=== PATIENT | female | born 1950 | race Caucasian/White ===

== ENCOUNTER 2017-04-01 21:41 | Observation (INO) | payer MEDICARE, SELFPAY | END 2017-04-02 10:00 | disposition home or self-care (01) | PROVIDERS: Admitting Provider Emergency Medicine; Emergency Provider Emergency Medicine; Family Provider Internal Medicine Adolescent Medicine; Visit Provider Internal Medicine Adolescent Medicine | DX: K52.9 Noninfective gastroenteritis and colitis, unspecified (principal); I10 Essential (primary) hypertension | CPT/HCPCS: 36415; 74176; 80053; 81001; 82150; 83690; 85025; 87086; 87275; 87276; 96365; 96375; 96376; 99285; G0378; J2405 ==

== ENCOUNTER → 2017-09-11 11:10 | Outpatient (CLI) | payer MEDICARE, SELFPAY ==
--- NOTE | 2017-09-11 11:19 | XR_ITS ---
XR chest 2V HISTORY: Left-sided chest pain/contusion ITS.REASON: CONTUSION OF LT RIBS ORDERING PHYSICIAN: Emmett Govea MD PATIENT AGE: 67 years COMPARISON: 08/07/2016 FINDINGS: The cardiomediastinal silhouette and pulmonary vascularity are within normal limits. There is a calcified granuloma in the left midlung. A faint area of increased density is present in the left midlung laterally similar to the previous exam. This is not significant change. There is a transverse density in the right midlung also not significantly changed. No lobar consolidation or collapse. No acute bony anomalies. IMPRESSION: 1. No acute finding. 2. Nonspecific parenchymal opacity left midlung and right .
--- NOTE | 2017-09-11 11:19 | XR_ITS ---
XR ribs LT 2V HISTORY: Left-sided rib pain following injury ITS.REASON: CONTUSION OF LT RIBS ORDERING PHYSICIAN: Emmett Govea MD PATIENT AGE: 67 years Comparison: None FINDINGS: Multiple views of the Left ribs were obtained. No fracture or dislocation. No lytic or blastic change. IMPRESSION: Negative RIBS. If pain persists, consider follow-up exam in 7-[address] with 3-D reformats.
== END ==
PROVIDERS: PCP Internal Medicine Adolescent Medicine; Visit Provider Internal Medicine Adolescent Medicine
DX: S20.212A Contusion of left front wall of thorax, initial encounter (principal)
CPT/HCPCS: 71046; 71100

== ENCOUNTER → 2018-05-04 11:19 | Outpatient (CLI) | payer MEDICARE, SELFPAY ==
[2018-05-04 15:04] LABS: Alanine Aminotransferase 32 U/L (12-78); Albumin Level 3.6 gm/dL (3.4-5.0); Albumin/Globulin Ratio 1.3 (1.1-1.8); Alkaline Phosphatase 131 U/L (46-116); Anion Gap 12.8 mEq/L (5-15); Aspartate Amino Transferase 14 U/L (15-37); Bilirubin,Total 0.3 mg/dL (0.2-1.0); Blood Urea Nitrogen 13 mg/dL (7-18); Carbon Dioxide 27 mmol/L (21.0-32.0); Chloride 105 mmol/L (98-107); Chol/HDL Ratio 4.5 (1-3.5); Cholesterol 178 mg/dL (140-200); Estimated Glomerular Filt Rate 55 ml/min (>60); GFR (African American) 67 ML/MIN (>60); Globulin 2.8 gm/dl (1.3-3.2); Glucose 118 mg/dL (74-106); HDL Cholesterol 40 mg/dL (29-89); LDL Cholesterol 118 mg/dL (0-130); Potassium 4.8 mmoL/L (3.5-5.1); Sodium 140 mmol/L (136-145); Total Protein,Serum 6.4 gm/dL (6.4-8.2); Triglycerides 99 mg/dL (30-200); VLDL Cholesterol 20 mg/dL (0-40)
[2018-05-04 15:31] LABS: Hemoglobin A1C 5.8 % (0.0-7.0)
== END ==
PROVIDERS: PCP Internal Medicine Adolescent Medicine; Visit Provider Internal Medicine Adolescent Medicine
DX: R73.9 Hyperglycemia, unspecified (principal); I10 Essential (primary) hypertension; E78.00 Pure hypercholesterolemia, unspecified
CPT/HCPCS: 36415; 80053; 80061; 83036

== ENCOUNTER 2018-08-21 18:01 | Emergency (ER) | payer MEDICARE, SELFPAY ==
[2018-08-21 18:25] VITALS: BP 154/85; PULSE 80; RESP 18; TEMP 36.8; O2SAT 96; BMI 39.1
--- NOTE | 2018-08-21 18:57 | HMH.EDUTC ---
[facility] [place] Disposition Clinical Impression: Sciatica Qualifiers: Laterality: left Qualified Code(s): M54.32 - Sciatica, left side Leg pain Qualifiers: Laterality: left Qualified Code(s): M79.605 - Pain in left leg Disposition: Home, Self-Care Condition on Discharge: Good Instructions: Sciatica, DI for Sciatica, Ketorolac Injection Additional Instructions: Rest, no heavy lifting, Keep taking the oral steroids that you are on. Follow up with your regular doctor or return if you're not getting better in 24 to 48 hours. GO TO THE ER FOR ANY WORSENING SYMPTOMS, SUCH NUMBNESS OF YOUR SADDLE AREA OR BOWEL OR BLADDER PROBLEMS. Referrals: Emmett Govea MD [Primary Care Provider] - Time of Disposition: 19:02 Medical Decision Making - Medical Records Medical records reviewed: Yes: I reviewed the patient's medical records. - Dougie Inquiry Pt receiving controlled substance: No Dougie was queried for this patient: No Vital Signs: 08/21/18 18:25 08/21/18 19:03 Temperature 98.3 F 98.3 F Temperature Source Oral Oral Pulse Rate 80 Pulse Rate [Right Brachial] 80 Respiratory Rate 18 18 Blood Pressure 154/85 H Blood Pressure [Right Arm] 154/85 H Blood Pressure Mean [Right Arm] 108 Blood Pressure Source Automatic Cuff Blood Pressure Source [Right Arm] Automatic Cuff Blood Pressure Position Sitting Blood Pressure Position [Right Arm] Sitting 02 Sat by Pulse Oximetry 96 Oxygen Delivery Method Room Air Room Air Orders (Tests/Meds): ED MEDICATIONS Discontinued Medications Generic Name Dose Route Start Last Admin Trade Name Kalin PRN Reason Stop Dose Admin Ketorolac Tromethamine 60 mg 08/21/18 18:40 08/21/18 18:44 Toradol 60mg/2ml Vial IM 08/21/18 18:41 60 mg ONCE ONE Administration [facility] [place] HPI - General Stated complaint: Hard to Walk Time Seen by Provider: 08/21/18 18:35 Mode of Arrival: Family Vehicle Source of Information: Patient Limitations: No Limitations Description of Symptoms (Recalled from Triage Doc. by RN): C/O LEFT LEG PAIN. PATIENT FEELS IT IS SCIATICA AFTER TRAVELING TO [place] AND BACK. HAS EXTREME DIFFICULTY WITH AMBULATION. SON WHOM IS A DR WROTE SCRIPT FOR PREDNISONE. HEENT Symptoms (Recalled from RN notes): No Resp Symptoms (Recalled from RN notes): No Skin Symptoms (Recalled from RN notes): No MS Symptoms (Recalled from RN notes): Yes Functional Status (Recalled from RN notes): N/A - Related Data Home Medications Medication Instructions Recorded Confirmed Citalopram Hydrobromide 20 mg PO DAILY 08/21/18 08/21/18 [Citalopram HBr] Furosemide [Furosemide 20mg Tab] 20 mg PO BID 08/21/18 08/21/18 Lisinopril [Lisinopril 40mg Tablet] 40 mg PO DAILY 08/21/18 08/21/18 Allergies Allergy/AdvReac Type Severity Reaction Status Date / Time bupivacaine [From MARCAINE] Allergy Intermediate (topical) Verified 08/21/18 18:30 rash ANESTHETICS,GENERAL AdvReac Unknown NAUSEA/VOMI Uncoded 04/08/17 15:26 TTING - Worker's Comp Is this a Worker's Comp case?: No H History - Hepatitis A Screen Drug use history?: No High risk sexual behaviors?: No History of sexually transmitted infection?: No Currently employed?: No Childcare worker?: No Do you have indoor plumbing?: Yes Do you have electricity?: Yes Attestation statement:: This patient has been screened for Hepatitis A risk factors. I have reviewed the patient's past medical history: Yes - Social History Alcohol Intake: never Occupational Status: retired - Psychiatric History Expresses thoughts of harming self/others: None Suicide Plan Description: No Plan ROS Obtained: Yes All systems reviewed & no additional complaints - Constitutional Constitutional: Denies chills, Denies fever(s) - Eyes Eyes: Denies change in vision, Denies eye discharge - Cardiovascular Cardiovascular: Denies chest pain - Respiratory Respiratory: No chest congestion, No cough - Gastrointest
--- NOTE | 2018-08-21 19:00 | ED_ITS ---
[facility] [place] Clinical Impression: Sciatica Qualifiers: Laterality: left Qualified Code(s): M54.32 - Sciatica, left side Leg pain Qualifiers: Laterality: left Qualified Code(s): M79.605 - Pain in left leg Disposition: Home, Self-Care Condition on Discharge: Good Instructions: Sciatica, DI for Sciatica, Ketorolac Injection Additional Instructions: Rest, no heavy lifting, Keep taking the oral steroids that you are on. Follow up with your regular doctor or return if you're not getting better in 24 to 48 hours. GO TO THE ER FOR ANY WORSENING SYMPTOMS, SUCH NUMBNESS OF YOUR SADDLE AREA OR BOWEL OR BLADDER PROBLEMS. Referrals: Emmett Govea MD [Primary Care Provider] - Time of Disposition: 19:02 Medical Decision Making - Medical Records Medical records reviewed: Yes: I reviewed the patient's medical records. - Dougie Inquiry Pt receiving controlled substance: No Dougie was queried for this patient: No Vital Signs: 08/21/18 18:25 08/21/18 19:03 Temperature 98.3 F 98.3 F Temperature Source Oral Oral Pulse Rate 80 Pulse Rate [Right Brachial] 80 Respiratory Rate 18 18 Blood Pressure 154/85 H Blood Pressure [Right Arm] 154/85 H Blood Pressure Mean [Right Arm] 108 Blood Pressure Source Automatic Cuff Blood Pressure Source [Right Arm] Automatic Cuff Blood Pressure Position Sitting Blood Pressure Position [Right Arm] Sitting 02 Sat by Pulse Oximetry 96 Oxygen Delivery Method Room Air Room Air Orders (Tests/Meds): ED MEDICATIONS Discontinued Medications Generic Name Dose Route Start Last Admin Trade Name Kalin PRN Reason Stop Dose Admin Ketorolac Tromethamine 60 mg 08/21/18 18:40 08/21/18 18:44 Toradol 60mg/2ml Vial IM 08/21/18 18:41 60 mg ONCE ONE Administration [facility] [place] HPI - General Stated complaint: Hard to Walk Time Seen by Provider: 08/21/18 18:35 Mode of Arrival: Family Vehicle Source of Information: Patient Limitations: No Limitations Description of Symptoms (Recalled from Triage Doc. by RN): C/O LEFT LEG PAIN. PATIENT FEELS IT IS SCIATICA AFTER TRAVELING TO [place] AND BACK. HAS EXTREME DIFFICULTY WITH AMBULATION. SON WHOM IS A DR WROTE SCRIPT FOR PREDNISONE. HEENT Symptoms (Recalled from RN notes): No Resp Symptoms (Recalled from RN notes): No Skin Symptoms (Recalled from RN notes): No MS Symptoms (Recalled from RN notes): Yes Functional Status (Recalled from RN notes): N/A - Related Data Home Medications Medication Instructions Recorded Confirmed Citalopram Hydrobromide 20 mg PO DAILY 08/21/18 08/21/18 [Citalopram HBr] Furosemide [Furosemide 20mg Tab] 20 mg PO BID 08/21/18 08/21/18 Lisinopril [Lisinopril 40mg Tablet] 40 mg PO DAILY 08/21/18 08/21/18 Allergies Allergy/AdvReac Type Severity Reaction Status Date / Time bupivacaine [From MARCAINE] Allergy Intermediate (topical) Verified 08/21/18 18:30 rash ANESTHETICS,GENERAL AdvReac Unknown NAUSEA/VOMI Uncoded 04/08/17 15:26 TTING - Worker's Comp Is this a Worker's Comp case?: No H History - Hepatitis A Screen Drug
[2018-08-21 19:03] VITALS: BP 154/85; PULSE 80; RESP 18; TEMP 36.8; O2SAT 96
== END 2018-08-21 19:10 | disposition home or self-care (01) ==
PROVIDERS: Emergency Provider Nurse Practitioner Family; PCP Internal Medicine Adolescent Medicine
DX: M54.32 Sciatica, left side (principal); M79.605 Pain in left leg; I10 Essential (primary) hypertension
CPT/HCPCS: G0463; 96372; 99201

== ENCOUNTER → 2018-08-27 10:47 | Outpatient (CLI) | payer MEDICARE, SELFPAY ==
--- NOTE | 2018-08-27 10:54 | XR_ITS ---
XR tibia fibula LT 2V CLINICAL INDICATION: ITS.REASON: LT LEG PAIN ORDERING PHYSICIAN: Miguel Padilla MD PATIENT AGE: 68 years Comparison: None FINDINGS: No fracture or dislocation. No lytic or blastic change IMPRESSION: Negative left tib-fib
== END ==
PROVIDERS: PCP Internal Medicine Adolescent Medicine; Visit Provider Internal Medicine Adolescent Medicine
DX: M79.605 Pain in left leg (principal)
CPT/HCPCS: 73590

== ENCOUNTER 2018-10-29 11:00 | Outpatient (RCR) | payer MEDICARE, SELFPAY | END 2018-10-29 16:06 | disposition home or self-care (01) | LOC: PT.CARL 11:00 | PROVIDERS: Visit Provider Nurse Practitioner Family | DX: M79.662 Pain in left lower leg (principal) | CPT/HCPCS: 97012; 97110; 97140; 97163; 97164 ==

== ENCOUNTER → 2018-11-02 11:13 | Outpatient (CLI) | payer MEDICARE, SELFPAY ==
[2018-11-02 13:33] LABS: Anion Gap 12.3 mEq/L (5-15); Blood Urea Nitrogen 13 mg/dL (7-18); Calcium 10.3 mg/dL (8.5-10.1); Carbon Dioxide 26 mmol/L (21.0-32.0); Chloride 104 mmol/L (98-107); Creatinine,Serum 1.13 mg/dL (0.55-1.02); Estimated Glomerular Filt Rate 48 ml/min (>60); GFR (African American) 58 ML/MIN (>60); Glucose 139 mg/dL (74-106); Potassium 4.3 mmoL/L (3.5-5.1); Sodium 138 mmol/L (136-145)
== END ==
PROVIDERS: PCP Internal Medicine Adolescent Medicine; Visit Provider Internal Medicine Adolescent Medicine
DX: I10 Essential (primary) hypertension (principal)
CPT/HCPCS: 36415; 80048

== ENCOUNTER → 2020-01-20 09:10 | Outpatient (CLI) | payer MEDICARE, SELFPAY ==
[2020-01-20 14:17] LABS: Chloride 105 mmol/L (98-107); Potassium 4.6 mmoL/L (3.5-5.1); Sodium 139 mmol/L (136-145)
[2020-01-20 14:20] LABS: Alanine Aminotransferase 19 U/L (12-78); Albumin Level 3.9 g/dl (3.5-5.0); Albumin/Globulin Ratio 1.6 (1.1-1.8); Alkaline Phosphatase 112 U/L (38-126); Anion Gap 11.6 mEq/L (5-15); Aspartate Amino Transferase 20 U/L (14-36); Bilirubin,Total 0.5 mg/dl (0.2-1.3); Blood Urea Nitrogen 17 mg/dl (7-17); Carbon Dioxide 27 mmol/L (22.0-30.0); Cholesterol 193 mg/dl (140-200); Estimated Glomerular Filt Rate 49 ml/min (>60); GFR (African American) 60 ML/MIN (>60); Globulin 2.5 g/dL (1.3-3.2); Total Protein,Serum 6.4 g/dl (6.3-8.2); Triglycerides 98 mg/dl (30-150); VLDL Cholesterol 20 mg/dL (0-40)
[2020-01-20 14:21] LABS: Calcium 10.2 mg/dl (8.4-10.2); Glucose 108 mg/dl (74-100); HDL Cholesterol 48 mg/dl (40-60)
[2020-01-20 14:31] LABS: Direct LDL Cholesterol 129.17 mg/dL (100-129)
[2020-01-20 14:50] LABS: Thyroid Stimulating Hormone 2.06 uIU/mL (0.465-4.68)
== END ==
PROVIDERS: Visit Provider Nurse Practitioner Family
DX: R73.9 Hyperglycemia, unspecified (principal); I10 Essential (primary) hypertension; E66.01 Morbid (severe) obesity due to excess calories
CPT/HCPCS: 36415; 80053; 80061; 83036; 84443

== ENCOUNTER → 2020-10-02 17:48 | Outpatient (CLI) | payer MEDICARE, SELFPAY | PROVIDERS: Visit Provider Nurse Practitioner Family | DX: R30.0 Dysuria (principal) | CPT/HCPCS: 87086; 87088; 87186 ==

== ENCOUNTER → 2020-10-13 09:30 | Outpatient (CLI) | payer MEDICARE, SELFPAY ==
[2020-10-13 14:09] LABS: Hemoglobin A1C 5.8 % (4.0-6.0)
[2020-10-13 14:16] LABS: Alanine Aminotransferase 85 U/L (12-78); Albumin Level 3.6 g/dl (3.5-5.0); Albumin/Globulin Ratio 1.5 (1.1-1.8); Alkaline Phosphatase 179 U/L (38-126); Anion Gap 8.9 mEq/L (5-15); Aspartate Amino Transferase 29 U/L (14-36); Bilirubin,Total 0.5 mg/dl (0.2-1.3); Blood Urea Nitrogen 18 mg/dl (7-17); Calcium 9.8 mg/dl (8.4-10.2); Carbon Dioxide 26 mmol/L (22.0-30.0); Chloride 104 mmol/L (98-107); Chol/HDL Ratio 5.5 (1-3.5); Cholesterol 186 mg/dl (140-200); Estimated Glomerular Filt Rate 62 ml/min (>60); GFR (African American) 75 ML/MIN (>60); Globulin 2.4 g/dL (1.3-3.2); Glucose 109 mg/dl (74-100); HDL Cholesterol 34 mg/dl (40-60); Potassium 4.9 mmoL/L (3.5-5.1); Sodium 134 mmol/L (136-145); Triglycerides 88 mg/dl (30-150); VLDL Cholesterol 18 mg/dL (0-40)
[2020-10-13 14:27] LABS: Direct LDL Cholesterol 133.58 mg/dL (100-129)
== END ==
PROVIDERS: Visit Provider Nurse Practitioner Family
DX: Z00.00 Encounter for general adult medical examination without abnormal findings (principal); N18.2 Chronic kidney disease, stage 2 (mild); R73.9 Hyperglycemia, unspecified; Z79.899 Other long term (current) drug therapy
CPT/HCPCS: 36415; 80053; 80061; 83036

== ENCOUNTER 2021-09-16 15:11 | Emergency (ER) | payer MEDICARE, SELFPAY ==
[2021-09-16 16:05] VITALS: BP 135/71; PULSE 74; RESP 16; TEMP 36.6; O2SAT 98; BMI 40.7
--- NOTE | 2021-09-16 16:40 | HMH.EDUTC ---
[facility] [place] Disposition Clinical Impression: Sinusitis Qualifiers: Sinusitis location: unspecified location Chronicity: unspecified Qualified Code(s): J32.9 - Chronic sinusitis, unspecified Disposition: Home, Self-Care Condition on Discharge: Good Instructions: Sinusitis, DI for Sinusitis Additional Instructions: *Monitor Temp, Over the counter Motrin or Tylenol as directed/as needed Tylenol every 4 hours and Motrin every 6 hours (as long as your family doctor has told you that you can take it) for fever or pain. and straight to ER if unable to lower temp less than 101.0 after medication given *Warm salt water gargles may help to soothe the throat *Throat Lozenges *Warm fluids like tea with honey may help to soothe the throat *Sleep elevated *Humidifier/Vaporizer *Flonase 2 sprays in each nostril daily but be aware that it may take 2-3 days before you notice improvement Follow up IMMEDIATELY for new or worsening symptoms or no Noticeable improvement over the next 48-72 hours. 911 for difficulty breathing or swallowing You were tested for today for upper respiratory Panel COVID19 your test result should be back in the next 24-48 hours, you may check your results on the [facility] [employer] [facility] Portal Prescriptions: Doxycycline Monohydrate [Doxycycline Roberts 100mg Tab] 100 mg PO BID 7 Days #14 tab Transmission Status: Pending to [id number] Referrals: Miguel Padilla MD [Primary Care Provider] - As needed Time of Disposition: 16:46 Medical Decision Making - Dougie Inquiry Pt receiving controlled substance: No Dougie was queried for this patient: No Vital Signs: 09/16/21 16:05 Temperature 97.8 F Temperature Source Oral Pulse Rate [Right Brachial] 74 Respiratory Rate 16 Blood Pressure [Right Arm] 135/71 Blood Pressure Mean [Right Arm] 92 Blood Pressure Source [Right Arm] Automatic Cuff Blood Pressure Position [Right Arm] Sitting 02 Sat by Pulse Oximetry 98 Oxygen Delivery Method Room Air Orders (Tests/Meds): ORDERS Category Date Time Status Covid-19 Nasal PCR ([facility]) Routine Lab 09/16/21 16:[address] [facility] [place] HPI - General Stated complaint: ciovid test, sore throat,cough,SOA richard Time Seen by Provider: 09/16/21 16:40 Mode of Arrival: Ambulatory Source of Information: Patient Limitations: No Limitations Description of Symptoms (Recalled from Triage Doc. by RN): COVID TEST D/T EXPOSURE ON FRIDAY. C/O CONGESTION AND SINUS PAIN/PRESSURE X 3 DAYS HEENT Symptoms (Recalled from RN notes): Yes Resp Symptoms (Recalled from RN notes): No Skin Symptoms (Recalled from RN notes): No MS Symptoms (Recalled from RN notes): No Functional Status (Recalled from RN notes): WNL - History of Present Illness Provider Complaint: Patient states that she was around someone on Friday that has tested positive for COVID States that she has been having sinus pain and pressure that has got worse over the last 3 days States that she wasnt sure if she had a sinus infection or maybe COVID - Related Data Home Medications Medication Instructions Recorded Confirmed Citalopram Hydrobromide 20 mg PO DAILY 08/21/18 08/21/18 [Citalopram HBr] Furosemide [Furosemide 20mg Tab*] 20 mg PO BID 08/21/18 08/21/18 lisinopriL [Lisinopril 40mg Tablet] 40 mg PO DAILY 08/21/18 08/21/18 Previous Rx's Medication Instructions Recorded Doxycycline Monohydrate 100 mg PO BID 7 Days #14 tab 09/16/21 [Doxycycline Roberts 100mg Tab] Allergies Allergy/AdvReac Type Severity Reaction Status Date / Time bupivacaine [From MARCAINE] Allergy Intermediate (topical) Verified 08/21/18 18:30 rash levofloxacin [From Levaquin] Allergy Verified 09/16/21 16:25 ANESTHETICS,GENERAL AdvReac Unknown NAUSEA/VOMI Uncoded 04/08/17 15:26 TTING - Worker's Comp Is this a Worker's Comp case?: No [facility] History - Hepatitis A Screen Attestation statement:: This patient has been screened for Hepatitis A risk factors. I have review
[2021-09-16 16:50] VITALS: BP 135/71; PULSE 74; RESP 16; TEMP 36.6; O2SAT 98
== END 2021-09-16 16:59 | disposition home or self-care (01) ==
PROVIDERS: Emergency Provider Nurse Practitioner; PCP Internal Medicine Adolescent Medicine
DX: J32.9 Chronic sinusitis, unspecified (principal)
CPT/HCPCS: 99212; C9803; G0463; U0003; U0005

== ENCOUNTER → 2022-02-04 06:11 | Outpatient (CLI) | payer MEDICARE, SELFPAY ==
[2022-02-04 18:29] LABS: Basophils # 0.1 K/mm3 (0-0.2); Eosinophils # 0.2 K/mm3 (0.0-0.4); Eosinophils % 2.1 % (0.1-12.0); Hematocrit 38.5 % (37.0-47.0); Hemoglobin 12.3 g/dL (12.2-16.2); Lymphocytes # 1.7 K/mm3 (0.7-4.5); Lymphocytes % 24.8 % (10-50); Mean Corpuscular Hemoglobin 30.3 pg (27.0-31.2); Mean Corpuscular Volume 94.8 fl (81-99); Mean Platelet Volume 11.4 fl (7.4-10.4); Monocytes # 0.4 K/mm3 (0.1-1.0); Monocytes % 5.7 % (1.7-9.3); Neutrophils # 4.6 K/mm3 (1.8-7.8); Neutrophils % 66.3 % (37.0-80.0); Platelet Count 280 K/mm3 (142-424); Red Blood Count 4.07 M/mm3 (4.20-5.40); Red Cell Distribution Width 14.3 % (11.5-17.5)
[2022-02-04 18:40] LABS: Alanine Aminotransferase 23 U/L (12-78); Albumin Level 3.7 g/dl (3.5-5.0); Albumin/Globulin Ratio 1.5 (1.1-1.8); Alkaline Phosphatase 139 U/L (38-126); Anion Gap 11.7 mEq/L (5-15); Aspartate Amino Transferase 29 U/L (14-36); Bilirubin,Total 0.4 mg/dl (0.2-1.3); Blood Urea Nitrogen 14 mg/dl (7-17); Calcium 9.7 mg/dl (8.4-10.2); Carbon Dioxide 29 mmol/L (22.0-30.0); Chloride 101 mmol/L (98-107); Chol/HDL Ratio 4.8 (1-3.5); Cholesterol 171 mg/dl (140-200); Estimated Glomerular Filt Rate 55 ml/min (>60); GFR (African American) 66 ML/MIN (>60); Globulin 2.4 g/dL (1.3-3.2); Glucose 96 mg/dl (74-100); HDL Cholesterol 36 mg/dl (40-60); Potassium 4.7 mmoL/L (3.5-5.1); Sodium 137 mmol/L (136-145); Total Protein,Serum 6.1 g/dl (6.3-8.2); Triglycerides 168 mg/dl (30-150); VLDL Cholesterol 34 mg/dL (0-40)
[2022-02-04 18:51] LABS: Direct LDL Cholesterol 106.43 mg/dL (100-129)
== END ==
PROVIDERS: PCP Family Medicine; Visit Provider Family Medicine
DX: Z00.00 Encounter for general adult medical examination without abnormal findings (principal); I10 Essential (primary) hypertension
CPT/HCPCS: 80053; 80061; 85025

== ENCOUNTER → 2022-05-16 07:21 | Outpatient (CLI) | payer MEDICARE, SELFPAY ==
[2022-05-16 17:33] LABS: Alanine Aminotransferase 27 U/L (12-78); Albumin Level 4.1 g/dl (3.5-5.0); Albumin/Globulin Ratio 1.9 (1.1-1.8); Alkaline Phosphatase 115 U/L (38-126); Aspartate Amino Transferase 26 U/L (14-36); Basophils # 0.1 K/mm3 (0-0.2); Basophils % 0.6 % (0.1-2.0); Bilirubin,Total 0.4 mg/dl (0.2-1.3); Blood Urea Nitrogen 20 mg/dl (7-17); Calcium 10.4 mg/dl (8.4-10.2); Carbon Dioxide 28 mmol/L (22.0-30.0); Chloride 103 mmol/L (98-107); Eosinophils # 0.1 K/mm3 (0.0-0.4); Eosinophils % 0.9 % (0.1-12.0); Estimated Glomerular Filt Rate 44 ml/min (>60); GFR (African American) 53 ML/MIN (>60); Globulin 2.2 g/dL (1.3-3.2); Glucose 107 mg/dl (74-100); Hemoglobin 13.4 g/dL (12.2-16.2); Lymphocytes % 25.7 % (10-50); Mean Corpuscular Volume 93.9 fl (81-99); Monocytes # 0.5 K/mm3 (0.1-1.0); Monocytes % 6.1 % (1.7-9.3); Neutrophils # 5.2 K/mm3 (1.8-7.8); Neutrophils % 66.7 % (37.0-80.0); Platelet Count 266 K/mm3 (142-424); Red Blood Count 4.47 M/mm3 (4.20-5.40); Red Cell Distribution Width 14.5 % (11.5-17.5); Sodium 137 mmol/L (136-145); Total Protein,Serum 6.3 g/dl (6.3-8.2); White Blood Count 7.8 K/mm3 (4.8-10.8)
[2022-05-16 17:50] LABS: Free T4 (Free Thyroxine) 1.32 ng/dl (0.78-2.19)
[2022-05-16 18:04] LABS: Thyroid Stimulating Hormone 0.03 uIU/mL (0.465-4.68)
[2022-05-16 18:27] LABS: Anion Gap 10.5 mEq/L (5-15); Potassium 4.5 mmoL/L (3.5-5.1)
[2022-05-17 09:40] LABS: Triiodothryronine (T3) Uptake 34 % (23.5-40.5)
[2022-05-17 11:14] LABS: Thyroid Stimulating Hormone 0.08 uIU/mL (0.465-4.68)
[2022-05-17 11:54] LABS: T4 (Thyroxine) 8.7 ug/dl (5.53-11.0)
[2022-05-18 08:13] LABS: FSH 59.6 mIU/mL (.); LH 30.7 mIU/mL (.); Prolactin 8.9 ng/mL (4.8-23.3)
== END ==
PROVIDERS: PCP Nurse Practitioner Family; Visit Provider Nurse Practitioner Family
DX: E66.9 Obesity, unspecified (principal); F41.9 Anxiety disorder, unspecified; M54.32 Sciatica, left side; I10 Essential (primary) hypertension; R79.89 Other specified abnormal findings of blood chemistry; Z68.37 Body mass index [BMI] 37.0-37.9, adult
CPT/HCPCS: 80053; 83001; 83002; 84146; 84436; 84439; 84443; 84479; 85025

== ENCOUNTER → 2022-06-07 14:03 | Outpatient (CLI) | payer MEDICARE, SELFPAY ==
--- NOTE | 2022-06-07 14:04 | US_ITS ---
FINAL REPORT TECHNIQUE: Real-time grayscale and color ultrasound of the thyroid was performed. CLINICAL HISTORY: low TSH level COMPARISON: none FINDINGS: The thyroid gland measures 4.9 x 2.2 x 1.5 cm on the right and 6.1 x 2.8 x 2.3 cm on the left. The isthmus measures 2 mm. In the right lobe there are multiple nodules and cysts. The largest hypoechoic nodule measures 1.2 cm. Other hypoechoic nodules are less than 1 cm. In the left lobe there are multiple nodules. There is a mixed cystic/solid nodule in the mid and lower pole measuring 3.6 cm. There is a smaller 8 mm hypoechoic nodule. IMPRESSION: Large TI-RADS 3 left thyroid nodule. Recommend FNA. TI-RADS 4 right thyroid nodule. Recommend follow-up. Other nodules which can be followed at subsequent follow-up. Reviewed, Interpreted and Dictated by Connie Alvarado MD Transcribed by Earnestine Hernández Authenticated and . [facility]
== END ==
PROVIDERS: PCP Nurse Practitioner Family; Visit Provider Nurse Practitioner Family
DX: R79.89 Other specified abnormal findings of blood chemistry (principal)
CPT/HCPCS: 76536

== ENCOUNTER → 2023-03-12 19:08 | Outpatient (CLI) | payer MEDICARE, SELFPAY ==
[2023-03-12 20:09] LABS: 25-OH Vitamin D, Total 36.1 ng/mL (30-100)
== END ==
PROVIDERS: PCP Nurse Practitioner; Visit Provider Nurse Practitioner
DX: E55.9 Vitamin D deficiency, unspecified (principal); Z68.34 Body mass index [BMI] 34.0-34.9, adult
CPT/HCPCS: 82306

== ENCOUNTER 2023-09-09 07:36 | Outpatient (CLI) | payer MEDICARE, SELFPAY ==
--- NOTE | 2023-09-09 07:40 | XR_ITS ---
FINAL REPORT CLINICAL HISTORY: Left foot Pain COMPARISON: None FINDINGS: LEFT FOOT Three views of the left foot demonstrate no acute fracture or dislocation. The visualized joint spaces are normally aligned. There is a small plantar calcaneal spur. The soft tissues are unremarkable. IMPRESSION: No acute bony abnormality. Reviewed, Interpreted and Dictated by Jim Rudd MD Transcribed by Earnestine Hernández Authenticated and [facility]
--- NOTE | 2023-09-09 07:40 | XR_ITS ---
FINAL REPORT CLINICAL HISTORY: Right foot pain COMPARISON: None FINDINGS: RIGHT FOOT 3 views of the right foot were obtained. There is a sideplate and screws securing the distal fibula. There are 2 orthopedic screws securing the medial malleolus. There is no acute fracture or dislocation. Visualized joint spaces are normally aligned. There is a moderate plantar spur. Soft tissues are unremarkable. IMPRESSION: Postoperative changes without acute bony abnormality. Reviewed, Interpreted and Dictated by Jim Rudd MD Transcribed by Earnestine Hernández Authenticated and [facility]
== END 2023-09-09 23:59 | disposition home or self-care (01) ==
LOC: RAD 07:37
PROVIDERS: PCP Family Medicine; Visit Provider Nurse Practitioner
DX: M79.671 Pain in right foot (principal); M79.672 Pain in left foot; M20.41 Other hammer toe(s) (acquired), right foot; M20.42 Other hammer toe(s) (acquired), left foot
CPT/HCPCS: 73630

== ENCOUNTER 2023-10-06 18:00 | Outpatient (CLI) | payer MEDICARE, SELFPAY | END 2023-10-06 23:59 | disposition home or self-care (01) | LOC: LAB.DROPOF 10-07 08:10 | PROVIDERS: PCP Family Medicine; Visit Provider Family Medicine | DX: N39.0 Urinary tract infection, site not specified (principal); B96.5 Pseudomonas (aeruginosa) (mallei) (pseudomallei) as the cause of diseases classified elsewhere | CPT/HCPCS: 87086; 87088; 87186 ==

== ENCOUNTER 2024-01-15 14:49 | Outpatient (CLI) | payer MEDICARE, SELFPAY | END 2024-01-15 23:59 | disposition home or self-care (01) | LOC: LAB.DROPOF 01-16 14:54 | PROVIDERS: PCP Family Medicine; Visit Provider Family Medicine | DX: R39.9 Unspecified symptoms and signs involving the genitourinary system (principal); N39.0 Urinary tract infection, site not specified | CPT/HCPCS: 87086; 87088; 87186 ==

== ENCOUNTER 2024-07-16 10:32 | Emergency (ER) | payer MEDICARE, SELFPAY ==
[2024-07-16 10:35] VITALS: BP 171/71; PULSE 67; RESP 17; TEMP 36.7; O2SAT 99; BMI 32.8
--- NOTE | 2024-07-16 10:44 | XR_ITS ---
FINAL REPORT CLINICAL HISTORY: fall, pain, difficulty bearing weight COMPARISON: None FINDINGS: RIGHT KNEE: 3 views of the right knee obtained. There is no acute fracture or dislocation. The joint spaces are intact. There is a trace joint effusion. There is no soft tissue abnormality. IMPRESSION: Trace joint effusion without acute bony abnormality. Reviewed, Interpreted and Dictated by Jim Rudd MD Transcribed by Earnestine Hernández Authenticated and [facility]
--- NOTE | 2024-07-16 10:44 | XR_ITS ---
FINAL REPORT CLINICAL HISTORY: fall, pain, difficulty bearing weight COMPARISON: None FINDINGS: 2 views of the left tibia/fibula were obtained. There is no acute fracture or dislocation. The joint spaces are intact. There is no soft tissue abnormality. IMPRESSION: No acute process Reviewed, Interpreted and Dictated by Jim Rudd MD Transcribed by Earnestine Hernández Authenticated and . [facility]
--- NOTE | 2024-07-16 10:44 | XR_ITS ---
FINAL REPORT CLINICAL HISTORY: fall, pain, difficulty bearing weight COMPARISON: None FINDINGS: LEFT ANKLE Three views demonstrate no acute fracture or dislocation. The visualized joint spaces are normally aligned. There is a small joint effusion. A small to moderate plantar spur is noted. The soft tissues are unremarkable. IMPRESSION: Small joint effusion without acute bony abnormality. Reviewed, Interpreted and Dictated by Jim Rudd MD Transcribed by Earnestine Hernández Authenticated and [facility]
--- NOTE | 2024-07-16 10:44 | XR_ITS ---
FINAL REPORT CLINICAL HISTORY: fall, pain, difficulty bearing weight COMPARISON: None FINDINGS: 3 views of the left foot were obtained. There is no acute fracture or dislocation. Plantar spur is noted. The joint spaces are intact. There is no soft tissue abnormality. IMPRESSION: No acute process. Reviewed, Interpreted and Dictated by Jim Rudd MD Transcribed by Earnestine Hernández Authenticated and [facility]
--- NOTE | 2024-07-16 10:50 | PC.NURSE ---
Rad at bedside at this time.
--- NOTE | 2024-07-16 10:58 | ED_ITS ---
Discharge Plan Disposition Patient Disposition: Home, Self-Care Prescriptions Prescriptions: New acetaminophen 500 mg capsule 1,000 mg PO Q6H PRN (Reason: fever) Qty: 20 0RF ibuprofen 600 mg tablet 600 mg PO Q8H PRN (Reason: pain) Qty: 20 0RF No Action phentermine [Adipex-P] 37.5 mg tablet 37.5 mg PO DAILY Qty: 30 1RF Rx Instructions: must administer 30 minutes before or 1-2 hours after breakfast escitalopram oxalate [Lexapro] 10 mg tablet 10 mg PO DAILY Qty: 30 2RF lisinopril 40 mg tablet 40 mg PO DAILY 90 Days Qty: 90 0RF furosemide 20 mg tablet 20 mg PO DAILY 30 Days Qty: 30 2RF Referrals Follow up/Referrals: Sami Be MD [Primary Care Provider] - See instructions Clinical Impressions Clinical Impression: Ankle sprain, Knee sprain Instructions Patient Instructions: How To Perform RICE (Rest, Ice, Compress, Elevate) Print Language Print Language: Spanish Discharge ED Provider: Ana Polanco General Adult HPI General Chief complaint: Fall Stated complaint: AO 07/16/24 0930,fell,syncope, inj rt knee,lt ankle Time Seen by Provider: 07/16/24 10:58 Mode of Arrival: Family Vehicle Source of Information: Patient and Medical Record Description of Symptoms (Recalled from ER Triage Doc. by RN): Pt presents to ER with concerns of pain to left ankle/foot/distal tib-fib and r knee after a fall whne she got out of the shower. States she felt faint like I could go to sleep but I never went out . State she got weak and fell down. She reports I don't know if I hurt myself on the way down or getting up . Tenderness to lateral left ankle/foot and radiating pain proximally. States pain is worsen when trying to walk. No medications RN CARDIAC. She is not on any blood thinners. Fall occurred at approx 0900. FS 100 History of Present Illness HPI narrative: Patient is a 74-year-old with past medical history significant for obesity hypertension presents to the emergency department with presyncopal episode. Patient was shaving her legs in a hunched over position while sitting on the toilet for prolonged period of time patient stood up looked herself in the mirror and had blurry vision and felt faint. She felt warm all over. No chest pain or shortness of breath. Patient lowered herself to the floor but did not pass out. Patient did not hit her head or lose consciousness. When she was getting up patient developed pain in her right knee and left ankle. Patient unable to bear weight on either. Patient does not take blood thinning medica tion. Related Data Previous Rx's ?Medication ?Instructions ?Recorded escitalopram oxalate 10 mg tablet 10 mg PO DAILY #30 tabs 03/30/24 (Lexapro) lisinopril 40 mg tablet 40 mg PO DAILY HTN 90 days #90 tabs 04/19/24 furosemide 20 mg tablet 20 mg PO DAILY HTN 30 days #30 tabs 05/31/24 phentermine 37.5 mg tablet 37.5 mg PO DAILY Weight loss #30 06/29/24 (Adipex-P) tabs acetaminophen 500 mg capsule 1,000 mg (2 x 500 mg) PO Q6H PRN 07/16/24 fever #20 caps ibuprofen 600 mg tablet 600 mg PO Q8H PRN pain #20 tabs 07/16/24 Allergies Allergy/AdvReac Type Severity Reaction Status Date / Time bupivacaine (From MARCAINE) Allergy Intermediate (topical) Verified 06/29/24 11:53 rash levofloxacin (From Levaquin) Allergy Verified 06/29/24 11:53 dexamethasone (From Decadron) AdvReac Intermediate Verified 06/29/24 11:53 ANESTHETICS,GENERAL AdvReac Unknown NAUSEA/VOMI Uncoded 06/29/24 11:53 [facility]ING [facility] Disclaimer: The information contained in this section may have been updated after the patient was seen, as this information can be updated by other users. Medical History Hoarseness Abnormal thyroid stimulating hormone (TSH) level Low TSH level Candidiasis Hypertension Obesity Upper respiratory disease Sinusitis Leg pain Sciatica Surgical History S/P parathyroidectomy History of hysterectomy History of tonsillectomy History of appendectomy History of colon resection Family History Grandfather Stroke Mother Alzheimer's dementia Father Kidney disease Social History Smoking Status: Never smoker alcohol intake: never substance use type: denies use current occupational status: other Travel in the last 8 weeks: None household members: spouse housing: house Have you lived/traveled outside US in past 30 days?: No Contact w/someone who lives/traveled outside US past 30 days?: No Exposure to someone with infectious disease in past 14 days?: No Do you have a fever (greater than 100.4 F or 38 C)?: No Have you tested positive for COVID-19: No Exposed to someone with COVID-19 in past 14 days?: No Do you have a sore throat?: No Do you have a cough?: No Do you have any weakness?: No Do you have any diarrhea?: No Are you experiencing any unusual bleeding?: No Do you have any muscle aches/pain?: No Do you have any abdominal pain?: No Are you experiencing loss of taste or smell?: No Other Medical History Have you received the Pneumonia Vaccine: Yes ROS Obtained: Yes All systems reviewed & no additional complaints except as documented Physical Exam General General appearance: alert and in no apparent distress Head Head exam: atraumatic Neck Neck exam: Present full ROM; Absent tenderness Respiratory Respiratory exam: Present normal lung sounds bilaterally; Absent respiratory d istress Cardiovascular Cardiovascular exam: Present regular rate, normal rhythm and normal heart sounds Abdominal Exam Abdominal exam: Present soft; Absent tenderness Extremities Exam Extremities exam: Present tenderness (Right knee with limited range of motion left lateral ankle with full range of motion neurovascularly intact bilateral distal lower extremities no bruising or swelling noted) Neurological Exam Neurological exam: Present alert and oriented X3 Skin Skin exam: Present other (No lacerations) Medical Decision Making Medical Records Screening: Per USPSTF and CDC recommendations, given the prevalence of disease in our region, it is our hospital?s policy to screen for HIV and viral Hepatitis for all patients aged 18 and over and those with ongoing risk factors. Dougie Inquiry Pt receiving controlled substance: No Vital Signs: 07/16/24 10:35 07/16/24 11:01 07/16/24 12:01 Temperature 98.0 F Temperature Source Oral Pulse Rate 67 67 Pulse Rate [Right] 67 Respiratory Rate 17 Blood Pressure 109/61 L 155/65 H Blood Pressure [Right Arm] 171/71 H Blood Pressure Mean Blood Pressure Mean [Right Arm] 104 Blood Pressure Source Blood Pressure Source [Right Arm] Automatic Cuff 02 Sat by Pulse Oximetry 99 98 99 Oxygen Delivery Method Room Air 07/16/24 12:30 07/16/24 13:01 07/16/24 14:27 Temperature 98.0 F Temperature Source Oral Pulse Rate 68 Pulse Rate [Right] Respiratory Rate 16 Blood Pressure 145/68 H 154/51 H 147/72 H Blood Pressure [Right Arm] Blood Pressure Mean 93 100 Blood Pressure Mean [Right Arm] Blood Pressure Source Automatic Cuff Blood Pressure Source [Right Arm] 02 Sat by Pulse Oximetry Oxygen Delivery Method Room Air Orders (Tests/Meds): ED MEDICATIONS Discontinued Medications Generic Name Dose Route Start Last Admin Trade Name Freq PRN Reason Stop Dose Admin Acetaminophen 1,000 mg 07/16/24 14:16 07/16/24 14:24 Acetaminophen 500mg Tab PO 07/16/24 14:17 1,000 mg ONCE ONE Administration Ibuprofen 600 mg 07/16/24 14:16 07/16/24 14:24 Ibuprofen 600 Mg Tablet PO 07/16/24 14:17 600 mg ONCE ONE Administration ORDERS Category Date Time Status CT Tib/Fib RT wo con Stat Cat Scan 07/16/24 11:[address] cervical spine wo con Stat Cat Scan 07/16/24 11:[address] head/brain wo con Stat Cat Scan 07/16/24 11:[address] knee RT wo con Stat Cat Scan 07/16/24 11:19 Completed XR ankle LT min 3V Stat Exams 07/16/24 10:44 Completed XR chest portable Stat Exams 07/16/24 11:19 Completed XR femur RT 2V Stat Exams 07/16/24 11:19 Completed XR foot LT 2V Stat Exams 07/16/24 10:44 Completed XR knee RT 4V Stat Exams 07/16/24 10:44 Completed XR pelvis 1-2V Stat Exams 07/16/24 11:19 Completed XR tibia fibula LT 2V Stat Exams 07/16/24 10:44 Completed XR tibia fibula RT 2V Stat Exams 07/16/24 11:28 Completed Medical Decision Narrative: In summary, this 74-year-old female presents to the emergency department today with right knee and left ankle pain after a presyncopal event. On initial evaluation patient is hypertensive saturating appropriately on room air afebrile no acute distress. Differential diagnosis includes but is not limited to vasovagal syncope, acute fracture dislocation ligamentous injury. Considered ACS PE arrhythmia critical aortic stenosis or valvular pathology hypoglycemia. Physical exam reassuring without murmurs no chest pain no shortness of breath lower suspicion for these critical diagnoses and more consistent with vasovagal syncope as patient was hunched over for prolonged period of time and suddenly stood up. Based on these concerns, I ordered EKG chest x-ray pelvis x-ray CT head C-spine extremity x-rays including left foot ankle tib-fib right femur knee tib-fib. ECG personally interpreted demonstrates normal sinus rhythm no ST elevation ST depression or T wave inversions concerning for ischemia XR personally interpreted demonstrates no acute fractures of the bilateral lower extremities no pneumothorax or focal consolidation. CT imaging personally interpreted demonstrate no intracranial hemorrhage, no fracture of the C-spine or right knee. Workup and history most suspicious for left ankle and right knee ligamentous injury. Patient given oral pain management able to ambulate with a walker amenable to discharge with outpatient follow-up with primary care provider. Critical Care Critical Care Time Critical Care Time: No
[2024-07-16 11:01] VITALS: BP 109/61; PULSE 67; O2SAT 98
--- NOTE | 2024-07-16 11:19 | CT_ITS ---
FINAL REPORT TECHNIQUE: Thin section axial CT images of the right tibia and fibula with coronal and sagittal reformats were performed. This study was performed with techniques to keep radiation doses as low as reasonably achievable (ALARA). Individualized dose reduction techniques using automated exposure control or adjustment of mA and/or kV according to the patient''s size were employed. CLINICAL HISTORY: Right leg pain after a fall FINDINGS: CT RIGHT TIBIA/FIBULA WITHOUT CONTRAST There is streak artifact associated with a sideplate and screws securing the distal fibula. There are 2 orthopedic screws securing the medial malleolus. There is healed fracture deformity of the posterior malleolus. There is degenerative cyst formation in the posterior aspect of the distal tibia. There is an osteochondral lesion in the medial talar dome measuring 9 mm in greatest dimension. IMPRESSION: No acute osseous abnormality. Old fracture deformities of the medial and lateral malleoli and the posterior malleolus. There is a 9 mm osteochondral lesion in the medial talar dome. Reviewed, Interpreted and Dictated by Jim Rudd MD Transcribed by Miriam Jimenez Authenticated and [facility]
--- NOTE | 2024-07-16 11:19 | CT_ITS ---
FINAL REPORT TECHNIQUE: Axial CT images were performed through the head. Coronal reformatted images were submitted. This study was performed with techniques to keep radiation doses as low as reasonably achievable (ALARA). Individualized dose reduction techniques using automated exposure control or adjustment of mA and/or kV according to the patient's size were employed. CLINICAL HISTORY: fall syncope COMPARISON: None FINDINGS: The ventricles are normal in size. There is no evidence of hemorrhage. There is no mass or edema identified. There is no abnormal extra-axial fluid seen. The paranasal sinuses are well aerated. IMPRESSION: No acute intracranial process. Reviewed, Interpreted and Dictated by Jim Rudd MD Transcribed by Earnestine Hernández Authenticated and . [facility]
--- NOTE | 2024-07-16 11:19 | XR_ITS ---
FINAL REPORT CLINICAL HISTORY: fall COMPARISON: None FINDINGS: The heart size is normal. The mediastinum is normal. There is no focal infiltrate or edema. There are no pleural effusions. There is no pneumothorax. There is no osseous abnormality. Note is made of the surgical clips overlying the lower cervical region. IMPRESSION: No acute cardiopulmonary process Reviewed, Interpreted and Dictated by Jim Rudd MD Transcribed by Juanis Chakraborty Authenticated and [facility]
--- NOTE | 2024-07-16 11:19 | XR_ITS ---
FINAL REPORT CLINICAL HISTORY: fall COMPARISON: None FINDINGS: SINGLE VIEW PELVIS: A single view of the pelvis was obtained. There is no acute fracture or dislocation. Visualized joint spaces are normally aligned. Soft tissues are unremarkable. Osteopenia is present. IMPRESSION: No acute bony abnormality. Reviewed, Interpreted and Dictated by Jim Rudd MD Transcribed by Juanis Chakraborty Authenticated and [facility]
--- NOTE | 2024-07-16 11:19 | CT_ITS ---
FINAL REPORT TECHNIQUE: Axial images were obtained of the cervical spine by computed tomography. Coronal and sagittal reconstruction process performed. This study was performed with techniques to keep radiation doses as low as reasonably achievable (ALARA). Individualized dose reduction techniques using automated exposure control or adjustment of mA and/or kV according to the patient''s size were employed. CLINICAL HISTORY: fall syncope COMPARISON: None FINDINGS: Vertebrae are normal in height. There is mild anterior osteophyte formation at C5-6. Minimal spondylolisthesis is noted of C3 on C4. There is moderate facet hypertrophy eccentric to the left in the upper cervical spine and eccentric to the right in the lower cervical spine. There is no acute fracture. IMPRESSION: Degenerative change without acute bony abnormality. Reviewed, Interpreted and Dictated by Jim Rudd MD Transcribed by Earnestine Hernández Authenticated and [facility]
--- NOTE | 2024-07-16 11:19 | CT_ITS ---
FINAL REPORT TECHNIQUE: Thin section axial CT images with coronal and sagittal reformats were performed of the right knee. This study was performed with techniques to keep radiation doses as low as reasonably achievable (ALARA). Individualized dose reduction techniques using automated exposure control or adjustment of mA and/or kV according to the patient''s size were employed. CLINICAL HISTORY: fall syncope COMPARISON: None FINDINGS: There is mild narrowing the medial compartment joint space. No evidence or fracture is seen. There is a trace joint effusion. Small osteochondral lesion is noted along the undersurface of the lateral articular facet of the patella measuring 7 mm in greatest dimension. There is no acute bony abnormality. IMPRESSION: No acute bony abnormality. Trace joint effusion. Osteochondral lesion. Reviewed, Interpreted and Dictated by Jim Rudd MD Transcribed by Earnestine Hernández Authenticated and [facility]
--- NOTE | 2024-07-16 11:19 | XR_ITS ---
FINAL REPORT CLINICAL HISTORY: fall, pain COMPARISON: None FINDINGS: Two views of the right femur were obtained. There is no acute fracture or dislocation. The joint spaces are well preserved. There is no acute soft tissue abnormality. IMPRESSION: No acute abnormality identified. Reviewed, Interpreted and Dictated by Jim Rudd MD Transcribed by Earnestine Hernández Authenticated and [facility]
--- NOTE | 2024-07-16 11:25 | PC.NURSE ---
took pt for scans
--- NOTE | 2024-07-16 11:28 | XR_ITS ---
FINAL REPORT TECHNIQUE: 3 views right tibia and fibula CLINICAL HISTORY: fall, pain COMPARISON: None FINDINGS: RIGHT TIBIA FIBULA: 3 views of the right tibia and fibula were obtained. There is a sideplate and orthopedic screws in the distal fibula, as well as 2 screws present in the medial malleolus. There is no acute fracture or dislocation. The joint spaces are intact. There is no soft tissue abnormality. Osteopenia is present. IMPRESSION: Prior ORIF fractures of the distal fibula and medial malleolus as described. Osteopenia without acute fracture. Reviewed, Interpreted and Dictated by Jim Rudd MD Transcribed by Juanis Chakraborty Authenticated and [facility]
--- NOTE | 2024-07-16 11:50 | PC.NURSE ---
pt back from ct scan
--- NOTE | 2024-07-16 11:59 | ECG_ITS ---
APPROVED REPORT Exam: Resting ECG HR:62 bpm ECG Measurements Heart Rate 62 AXES DE 153 P 67 QRSd 90 QRS 68 QT 433 T 37 QTc 438 Conclusion SINUS RHYTHM NORMAL ECG Electronically signed by : ANGELA STEVEN, 07/18/2024 00:25:27
[2024-07-16 12:01] VITALS: BP 155/65; PULSE 67; O2SAT 99
[2024-07-16 12:30] VITALS: BP 145/68
--- NOTE | 2024-07-16 12:48 | PC.NURSE ---
assisting pt to the bathroom via wheelchair
[2024-07-16 13:01] VITALS: BP 154/51
--- NOTE | 2024-07-16 14:13 | PC.NURSE ---
pt upt in hallway with SBA and walking tolerating fair
--- NOTE | 2024-07-16 14:15 | PC.NURSE ---
Pt knee and ankle wrapped with sharif bandages. Pt able to walk with walker. Pt stated that knee hurts a lil worse than ankle
[2024-07-16] MEDS: IBUPROFEN 600 MG TABLET PO (14:24)
[2024-07-16] MEDS: ACETAMINOPHEN 500MG TAB 1000 MG PO (14:24)
[2024-07-16 14:27] VITALS: BP 147/72; PULSE 68; RESP 16; TEMP 36.7; O2SAT 99
== END 2024-07-16 14:28 | disposition home or self-care (01) ==
PROVIDERS: Emergency Provider Student in an Organized Health Care Education/Training Program; PCP Family Medicine
DX: R55 Syncope and collapse (principal); M25.572 Pain in left ankle and joints of left foot; M79.672 Pain in left foot; M79.662 Pain in left lower leg; M25.562 Pain in left knee; S93.402A Sprain of unspecified ligament of left ankle, initial encounter; S83.92XA Sprain of unspecified site of left knee, initial encounter; W19.XXXA Unspecified fall, initial encounter
CPT/HCPCS: 70450; 71045; 72125; 72170; 73552; 73564; 73590; 73610; 73620; 73700; 93005; 99285

== ENCOUNTER 2024-07-29 14:38 | Outpatient (CLI) | payer MEDICARE, SELFPAY ==
--- NOTE | 2024-07-29 15:15 | MR_ITS ---
FINAL REPORT TECHNIQUE: Multiplanar MR without contrast CLINICAL HISTORY: right knee injury after a fall pain in right knee FINDINGS: Articular cartilage: Grade IV chondromalacia patella. No focal osteochondral defect. Marrow signal: Multiple areas of marrow edema suggestive of bone contusions. Subchondral fracture suspected of the lateral femoral condyle best appreciated on coronal imaging. Bone contusions are most pronounced of the medial femoral condyle. Joint fluid: Moderate joint effusion. Menisci: Moderate sized longitudinal tear posterior horn medial meniscus. Lateral meniscus intact. Ligaments: Collateral, cruciate and patellofemoral ligaments intact Tendons: Quadriceps and patellar tendon normal Edema in the prepatellar region which may represent contusion or bursitis. IMPRESSION: Multiple areas of marrow edema compatible with bone contusion with a subchondral fracture of the lateral femoral condyle. Moderate sized tear posterior horn medial meniscus. Reviewed, Interpreted and Dictated by Peggy Almonte MD Transcribed by Bebe Fuentes Authenticated and [facility]
== END 2024-07-29 23:59 | disposition home or self-care (01) ==
LOC: RAD 14:39
PROVIDERS: PCP Family Medicine; Visit Provider Nurse Practitioner Family
DX: M25.561 Pain in right knee (principal); S83.91XA Sprain of unspecified site of right knee, initial encounter
CPT/HCPCS: 73721

== ENCOUNTER 2024-08-03 11:56 | Outpatient (RCR) | payer MEDICARE, SELFPAY | END 2024-08-03 23:59 | disposition home or self-care (01) | LOC: PT 11:56 | PROVIDERS: Visit Provider Family Medicine | DX: S83.91XA Sprain of unspecified site of right knee, initial encounter (principal) | CPT/HCPCS: 97760 ==

== ENCOUNTER 2024-11-11 12:59 | Outpatient (CLI) | payer MEDICARE, SELFPAY ==
--- OUTSIDE RECORDS SUMMARY | 2024-07-24 17:30 | XMS_ITS ---
Author Organization [facility] Address [address] [place] [address] Care Team Providers Care French Professor Name Role Phone José Goveahen Primary Care Provider Josselyn Simon Unavailable [phone] Migration, Provider Unavailable Unavailable Allergies Allergen (clinical drug ingredient) Drug/Non Drug Allergy documented on EMR Reaction Allergy Type Onset Date Status LEVAQUIN (uncoded) facial twitching Allergy Active REASON FOR VISIT [facility] Conversion Encounter Medications Medication SIG (Take, Route, Frequency, Duration) Notes Start Date End Date Status Citalopram Hydrobromide 20 MG 1 tab(s) orally once a day; Duration: 90 days Active Atorvastatin Calcium 20 MG 1 tab(s) orally once a day; Duration: 30 day(s) 10/13/2020 Active Furosemide 20 MG 1 tab(s) orally once a day; Duration: 90 days Active Lisinopril 40 MG 1 tab(s) orally once a day; Duration: 90 days Active Fluticasone Propionate 50 MCG/ACT 1 spray(s) intranasally once a day; Duration: 30 day(s) Active Gabapentin 300 MG 1 cap(s) orally once a day; Duration: 30 day(s) 08/15/2021 Active Dulera 100-5 MCG/ACT 2 puff(s) inhaled 2 times a day; Duration: 30 day(s) 10/23/2021 Active PriLOSEC OTC 20 MG 1 cap(s) orally once a day; Duration: 30 days Active MiraLax - ORALLY ONCE A DAY *Please review and pick correct strength-formulati on from Medispan options. If intended option is not shown, discontinue and re-order from Quick Search* Active Cetirizine HCl 10 MG 1 tab(s) orally onc e a day prn 03/25/2019 Active Breo Ellipta 100 MCG-25 MCG/INH 1 PUFF(S) INHALED ONCE A DAY; Duration: 30 DAY(S) *Please review and pick correct strength-formulati on from Medispan options. If intended option is not shown, discontinue and re-order from Quick Search* 09/24/2021 Active Encounters Encounter Location Date Provider Diagnosis [facility] IM [facility] [address] [place] [address] 07/24/2024 Provider Migration Other chronic pain G89.29 Assessments Encounter Date Diagnosis (ICD Code) Assessment Notes Treatment Notes Treatment Clinical Notes Section Notes 07/24/2024 Other chronic pain (ICD-10 - G89.29) Plan Of Treatment Medication Medication Name Sig Start Date Stop Date Notes Citalopram Hydrobromide 20 MG 1 tab(s) orally once a day; Duration: 90 days Gabapentin 300 MG 1 cap(s) orally once a day; Duration: 30 day(s) 08/15/2021 Dulera 100-5 MCG/ACT 2 puff(s) inhaled 2 times a day; Duration: 30 day(s) 10/23/2021 Breo Ellipta 100 MCG-25 MCG/INH 1 PUFF(S) INHALED ONCE A DAY; Duration: 30 DAY(S) 09/24/2021 *Please review and pick correct strength-formulation from Medispan options. If intended option is not shown, discontinue and re-order from Quick Search* Progress Notes * Nereida ADAMS ADOB:[birth year] (74 yo F)Acc No.[id number]:07/24/2024 Patient: Nereida MURPHY Vonnie Provider: Joe Vasques :1950 A ge:74 Y S ex:Female Date:07/24/2024 Address:[address] [place] [address] [id number] Pcp:Emmett Govea Subjective: * Chief Complaints: * 1 . Multum To Medispan Conversion Encounter. * Medical History: * Medications: T aking MiraLax - POWDER FOR RECONSTITUTION ORALLY ONCE A DAY , Notes to Pharmacist: *Please review and pick [facility]. If intended option is not shown, discontinue and re-order from Quick Search*, Taking PriLOSEC OTC 20 MG Tablet Delayed Release 1 cap(s) orally once a day , Taking Cetirizine HCl 10 MG Tablet 1 tab(s) orally once a day prn , Taking Atorvastatin Calcium 20 MG Tablet 1 tab(s) orally once a day , Taking Lisinopril 40 MG Tablet 1 tab(s) orally once a day , Taking Furosemide 20 MG Tablet 1 tab(s) orally once a day , Taking Fluticasone Propionate 50 MCG/ACT Suspension 1 spray(s) intranasally once a day * Allergies: L EVAQUIN: facial twitching. Objective: * Vitals: Assessment: * Assessment: 1. O ther chronic pain - G89.29 Plan: * Treatment: 2. O thers Refill Citalopram Hydrobromide Tablet, 20 MG, 1 tab(s), orally, once a day, 90 days, 90 Tablet, Refills 1; S tart Breo Ellipta POWDER, 100 MCG-25 MCG/INH, 1 PUFF(S), INHALED, ONCE A DAY, 30 DAY(S), 1, Refills 0, Notes to Pharmacist: *Please review and [facility] If intended option is not shown, discontinue and re-order from Quick Search*; S tart Dulera Aerosol, 100-5 MCG/ACT, 2 puff(s), inhaled, 2 times a day, 30 day(s), 2 Inhaler, Refills 3. * * Electronic signature of Prov ider Migration on 11/15/2024 at 01:06 PM EDT Sign off status: Pending * Provider: Joe vizcaino Migration Date: 0 07/24/2024 Generated for Nannette de souza/Kane/Cheikhitting on: 0 11/15/2024 01:06 PM EDT
--- OUTSIDE RECORDS SUMMARY | 2024-10-25 11:20 | XMS_ITS | Encounter Summary ---
Author Organization Healthcare Address [address] [place] [address] Care Team Providers Care Dining Car Conductor Name Role Phone Sami Be MD Primary Care Provider Eleonora vailable Reason for Referral * Consultation (Routine) - Authorized Specialty Diagnoses / Procedures Referred By Contac t Referred To Contact Diagnoses Postoperative hypothyroidism Melissa Cleveland APRN, MORGAN [address] [address] Phone: tel: fax: Referral ID Status Reason Start Date Expiration Date V isits Requested Visits Authorized [id number] Authorized 10/25/2024 04/26/2026 1 1 Reason for Visit * Reason Comments Postoperative hypothyroidism Encounter Details Date Type Department Care Team (Late st Contact Info) Description 10/25/2024 11:20 AM EDT Office Visit [facility] [address] [place] [address] Melissa Cleveland APRN, MORGAN [address] [place] [address] 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) (Primary Dx); Postoperative hypothyroidism; Vitamin D deficiency; Medication management; Hypocalcemia Social History Tobacco Use Types Packs/Day Years Used Date Smoking Tobacco: Never Smokeless Tobacco: Never Comments:none Alcohol Use Standard Drinks/Week Comments Never 0 (1 standard drink = 0.6 oz pur e alcohol) PHQ-2 Answer Date Recorded Patient Health Questionnaire-2 Score 0 10/25/2024 PHQ-2A Answer Date Recorded Depression Risk 0 07/16/2022 Comments No Sex and Gender Information Value Date Recorded Sex Assigned at Female 06/03/2022 12:31 PM EST Legal Sex Female 8:57 PM EDT Gender Identity Female 06/03/2022 12:31 PM EST Sexual Orientation Not on file documented as of this encounter Last Filed Vital Signs Vital Sign Reading Time Taken Comments Blood Pressure 156/93 10/25/2024 11:08 AM EDT Pulse 76 10/25/2024 11:08 AM EDT Temperature - - Respiratory Rate - - Oxygen Saturation - - Inhaled Oxygen Concentration - - Weight 98.7 kg (217 lb 9.5 oz) 10/25/2024 11:08 AM EDT Height 170.2 cm (5' 7 ) 10/25/2024 11:08 AM EDT Body Mass Index 34.08 10/25/2024 11:08 AM EDT documented in this encounter Functional Status * Over the past 2 weeks, how often have you been bothered by any of the following problems? Question Answer Date of Assessment Author Little interest or pleasure in doing things Not at all 10/25/2024 11:13 AM EDT MorningMargi Feeling down, depressed, or hopeless Not at all 10/25/2024 11:13 AM EDT MorningMargi Patient Health Questionnaire -2 Score 0 10/25/2024 11:13 AM EDT MorningMargi * If you checked off any problems on this questionnaire so far, Question Answer Date of Assessment Author How difficult have these problems made it for you to do your work, take care of things at home, or get along with other people? Not difficult at all 10/25/2024 11:13 AM EDT MorningMally documented as of this encounter Miscellaneous Notes * Patient Instructions - Melissa Cleveland, ALISIA, LUBRICATING ENGINEER - 10/25/2024 11:20 AM EDT Continue with Levothyroxine 88 mcg daily or as labs indicate Labs today Labs here on same day as the 12 month followup appointment samy/ Melissa * Progress Notes - Melissa Cleveland APRN, CNS - 10/25/2024 11:20 AM EDT Subjective Patient ID: Nereida Adams is a 74 y.o. female. Patient returns for her 12 month followup appointment. Initial consultation date: 05/10/2022 Diagnosis: postsurgical hypothyroidism and resolved parathyroid adenoma Last clinic visit date 10/27/2023 Last lab draw 10/30/2023 Today's visit 10/25/2024 12 month followup Medications DOSAGE Last dosage change date Levothyroxine mcg 88 mcg As of 10/31/2023 Vitamin D3 OTC 2000 units daily Need to reassess Patient reports feeling fine (hair growing back) while on 88 mcg daily levothyroxine as labs in 10/2023 indicated the 100 mcg dose of levothyroxine was too much. Labs pending at time of appointment. She is taking OTC vitamin d to address her vitamin D deficiency. HPI obtained for initial Endocrine Clinic appointment on 05/10/2022: With recent clinic visit on 05/16/2022, PCP reported patient's complaint of weight loss, irritable and argumentative. The adipex was stopped. (Patient states she had never started this medication. Wasgiven Celexa. Labs drawn on within chart below. TSH was suppressed. In addition to patient's current thyroid issue, patient's medical history includes yet not limited to HTN, allergies, anxiety, and obesity. Patient has c/o fatigue, anxiety, irritability, hoarseness and fullness in the neck, Increased Bowel movements -since 13 inch colon resected and therefore diarrhea, Hair loss -for past 1-2 months andeye twitching. Thyroid history: Thyroid ultrasound: 06/07/2022 see below Thyroid nodules: yes-- largest 3.2 cm Thyroid surgery: no Neck or thyroid radiation: no Previous thyroid conditions (Graves disease/thyroiditis): no Family history of thyroid conditions: mother -hypothyroidism Supplements or OTCs: no Thyroid ultrasound 06/07/2022 [facility]: Right lobe measures 4.9 x 2.2 x 1.5 cm Left lobe measures 6.1 x 2.8 x 2.3 cm Isthmus measures 2mm Nodules: yes bilateral Right lobe: multiple nodules: largest 1.2 cm hypoechoic nodule TRADS 4; additional nodules <1 cm Left lobe: multiple nodules: 3.6 cm mixed cystic/solid nodule RADS 3, smaller nodule is 0.8 cm. Masses: no Texture of thyroid: not mentioned. Multinodular thyroid 06/27/2022: Completed FNA of 5 cm left thyroid nodule: Cytology was - ATYPIA OF UNDETERMINED SIGNIFICANCE (BETHESDA CATEGORY III). Was referred to [facility] team and saw Dr Lebron on 07/16/2022. Due to additional concernof previous hypercalcemia, the patient is being considered for a total thyroidectomy and parathyroidectomy. She will be undergoing a NM parathyroid scan on 07/30/2022. Labs drawn on 07/19/2022 note normal TSH as well as T3 and T4 (see chart below). 07/2022: patient states she is ready for the scan and the surgery. She is aware that she need to take levothyroxine for life. 10/23/2022: Patient returns for her 3 month followup appointment regarding a hyperthyroidism in context of a multinodular goiter and hypercalcemia in context of hyperparathyroidism. Patient reports feeling pretty good. She can not determine if her sore throat is surgical related. Last seen 07/23/2022 Treatment: 08/07/2022 Total thyroidectomy and right inferior parathyroidectomy: Final Diagnosis A. RIGHT PARATHYROID, INFERIOR, PARATHYROIDECTOMY: - HYPERCELLULAR PARATHYROID TISSUE (190 MG) B. LEFT THRYOID LOBE AND ISTHMUS (LOBECTOMY): - THYROID WITH FOLLICULAR NODULAR DISEASE - FOCAL EXTRATHYROIDAL PARATHYROID TISSUE PRESENT C. RIGHT THYROID LOBE (LOBECTOMY): - THYROID WITH FOLLICULAR NODULAR DISEASE - FOCAL EXTRATHYROIDAL PARATHYROID TISSUE PRESENT Currently on levothyroxine 125 mcg daily and calcitriol 0.25 mcg daily and calcium if noted tingling in the mouth. Labs on 10/21/2022: TSH <0.01 with free T4 of 1.8 on levothyroxine 125 mcg daily. Will reduce the levothyroxine to 112 mcg daily. Total calcium was low at 8.7 (8.9-10.2). Asked patient to take 2 tums daily and continue the calcitriol Labs: 05/16/22 TSH 0.08 l Free T4 1.32 N Total T4 8.7 N Uptake T3 34 N Levothyroxine mcg no Methimazole mg no Component Ref Rng 06/10/22 07/16/22 07/19/22 08/13/22 10/21/22 Free T4 0.8 - 1.7 ng/dL 1.3 1.1 1.8 H T3, Total 87 - 187 ng/dL 89 87 TSH Rec Ab <=1.75 IU/L <0.80 TSH 0.4 - 4.2 uIU/mL 1.51 1.37 <0.01 L TPO Ab <=8 IU/mL <5 PTH Intact Total 12 - 72 pg/mL 18 33 Calcium, Ionized 4.6 - 5.3 mg/dL 5.8 (H) Calcium, Total 8.9-10.2 mg/dL 11.1 H 10.8 H 10.5 H 8.0 Low (s/p surgery) 8.7 Low (asked to take 1 tums twice daily& continue calcitriol) Calcium, Urine mg/dL 13.1 Thyroid functional status euthyroid euthyroid Levothyroxine mcg Started 112 mcg on 08/09 then inc to 125 mcg daily on 09/04/22 125 red to 112 Comments 07/16/2022: Hypercalcemia 08/07/2022: Total thyroidectomy & Parathyroidectomy Component Ref Rng 12/25/2022 10/30/2023 Free T4 0.8 - 1.7 ng/dL 1.7 1.4 TSH 0.4 - 4.2 uIU/mL 0.02 (L) 0.11 L Calcium, Ionized 4.6 - 5.3 mg/dL 5.0 N 4.6 N Vit D, 25-OH 20 - 80 ng/mL 19.7 (L) 17.9 L (on 10/27/23) Levothyroxine mcg 112 red to 100 100 red 88 Ergocalciferol 13912 units weekly x 8 weeks Recommended 2000 units VitD3 daily The following portions of the chart were reviewed this encounter and updated as appropriate: Tobacco Allergies Problems Med Hx Surg Hx Fam Hx Review of Systems Constitutional: Negative for diaphoresis, fatigue and unexpected weight change. HENT: Positive for voice change (I sing. Voice will just stop. I have had voice therapy). Respiratory: Negative. Negative for shortness of breath. Cardiovascular: Negative. Negative for chest pain and palpitations. Gastrointestinal: Negative. I take miralax to keep bowels regular Endocrine: Positive for cold intolerance (feet get cold at times- this has been since weight loss and thyroidectomy). Negative for heat intolerance. S/p hysterectomy Genitourinary: Negative. On lasix at 12 noon. Musculoskeletal: Negative. Skin: Hair loss - resolved. Neurological: Positive for tremors (head twitches a times. My grandmother did it to.). Negative fordizziness, numbness and headaches. Psychiatric/Behavioral: Positive for sleep disturbance (waking up to urinate.). Visit Vitals BP (!) 156/93 (BP Location: Right arm, Patient Position: Sitting, BP Cuff Size: Large adult) Pulse 76 Ht 1.702 m (5' 7 ) Wt 98.7 kg (217 lb 9.5 oz) BMI 34.08 kg/m?? OB Status Hysterectomy Smoking Status Never BSA 2.16 m?? Objective Physical Exam Constitutional: Appearance: Normal appearance. She is obese. HENT: Head: Normocephalic and atraumatic. Neck: Comments: Thyroid absent. Cardiovascular: Rate and Rhythm: Normal rate and regular rhythm. Pulses: Normal pulses. Heart sounds: Normal heart sounds. Pulmonary: Effort: Pulmonary effort is normal. Breath sounds: Normal breath sounds. Abdominal: General: Bowel sounds are normal. Palpations: Abdomen is soft. Musculoskeletal: Cervical back: Normal range of motion and neck supple. Neurological: Mental Status: She is oriented to person, place, and time. Psychiatric: Mood and Affect: Mood normal. Behavior: Behavior normal. Thought Content: Thought content normal. Judgment: Judgment normal. Assessment/Plan 1. Postsurgical hypothyroidism: total thyroidectomy 08/07/2022 to address MNG and FNA that was AUS. Pathology noted benign follicular nodular disease. No cancer noted. ==reviewed how to take levothyroxine precisely when seen in June 2022. At 5 7 lean body mass dosing of levothyroxine would be approximately 112 mcg daily however this dose has been found to be excessive. ==currently on levothyroxine 88 mcg daily as the 112 and 100 mcg daily doses continued to reveal TSHs below normal. ==labs today == RTC 12 months 2. S/p parathyroidectomy due to elevated calcium 07/2022: ==will check total calcium 3. Vitamin D deficiency noted in the past. ==currently taking OTC vitamin D (pt not aware of what dose she is on). ==Vitamin d lab today. ==asked pt to message me with the dosage. I personally spent a total of 35 minutes on this encounter. This time includes face to face with patient, counseling and discussion and/or coordination of care. ADDENDUM: Continue levothyroxine 88 mcg daily as TSH nicely mid range normal now. Should remain on the 88 mcg dose. Vitamin D is now midrange normal. Pt to continue on the same dose of the OTC that she has been taking. Total Calcium is a little low. Patient should consider taking ONE tablet of 500 or 750 mg TUMS daily to ensure she has appropriate calcium level. Component Ref Rng 10/25/2024 Vit D, 25-Hydroxy 20.0 - 80.0 ng/mL 52.4 TSH 0.40 - 4.20 uIU/mL 2.19 Free T4 0.8 - 1.7 ng/dL 1.2 Calcium 8.9 - 10.2 mg/dL 8.5 (L) Electronically signed by: Melissa Cleveland APRN, CNS [facility] [address] [place] [address]. [address] [place]. [address] PHONE [phone] FAX: [phone] documented in this encounter Plan of Treatment Upcoming Encounters Date Type Department Care Team (Late st Contact Info) Description 10/31/2025 11:00 AM EDT Office Visit [facility] [address] [place], [place] [address] [address] Melissa Cleveland APRN, CNS [address] [place] [address] [place] [address] Scheduled Referrals Name Type Priority Associated Diagnoses Orde r Schedule Follow Up [facility] Outpatient Referral Routine Postoperative hypothyroidism Expected: 10/25/2025, Expires: 04/28/2026 documented as of this encounter Results * (ABNORMAL) Total Calcium, Plasma (10/25/2024 11:52 AM EDT) Total Calcium, Plasma 8.5(L) 8.9 - 10.2 mg/dL 10/25/2024 1:59 PM EDT [facility] Blood Venous blood specimen / Unknown Venipuncture / Unknown 10/25/2024 11:52 AM EDT 10/25/2024 11:53 AM EDT Melissa Cleveland APRN, LUBRICATING ENGINEER LAB BLOOD ORDERABLES Final Result Performing Organization Address [facility] Co de Phone Number [facility] [address] [place] [address] * Vitamin D 25 Hydroxy (10/25/2024 11:52 AM EDT) Vitamin D 25 Hydroxy 52.4 20.0 - 80.0 ng/mL 10/25/2024 3:31 PM EDT [facility] Blood Venous blood specimen / Unknown Venipuncture / Unknown 10/25/2024 11:52 AM EDT 10/25/2024 11:53 AM EDT Narrative [facility] - 10/25/2024 3:31 PM EDT Testing performed on [employer] Quantitative Equ[employer] Head, standardized against NIST SRM 2972. When testing samples from patients whose predominant form of vitamin D is vitamin D2, such as patients receiving vitamin D2 supplementation, results that are subtherapeutic should be confirmed with another method, such as LC-MS/MS, before being used for patient management. Vitamin D, 25-Hydroxy reference range, age 18 years and up: Deficiency: <12 ng/mL Insufficiency: 12 to 19 ng/mL Sufficiency: 20 to 80 ng/mL Possible toxicity: >100 ng/mL Melissa Cleveland APRN, LUBRICATING ENGINEER LAB BLOOD ORDERABLES Final Result Performing Organization Address [facility] Co de Phone Number [facility] [address] [place] [address] * Thyroid Stimulating Hormone, Plasma (10/25/2024 11:52 AM EDT) Thyroid Stimulating Hormone, Plasma 2.19 0.40 - 4.20 uIU/mL 10/25/2024 1:59 PM EDT [facility] Blood Venous blood specimen / Unknown Venipuncture / Unknown 10/25/2024 11:52 AM EDT 10/25/2024 11:53 AM EDT us Melissa Cleveland APRN, LUBRICATING ENGINEER LAB BLOOD [place] [address] * Free T4, Plasma (10/25/2024 11:52 AM EDT) Free T4, Plasma 1.2 0.8 - 1.7 ng/dL 10/25/2024 1:59 PM EDT [facility] Blood Venous blood specimen / Unknown Venipuncture / Unknown 10/25/2024 11:52 AM EDT 10/25/2024 11:53 AM EDT Melissa Cleveland APRN, LUBRICATING ENGINEER LAB BLOOD ORDERABLES Final Result Performing Organization Address City/[facility]/[place] [address] documented in this encounter Visit Diagnoses Diagnosis Hypoparathyroidism after procedure ([facility])- Primary Postoperative hypothyroidism Postsurgical hypothyroidism Vitamin D deficiency Medication management Hypocalcemia documented in this encounter Additional Health Concerns Assessment Noted Time A fall risk assessment has been complete d for the patient 10/25/2024 11:14 AM EDT A Body Mass Index follow-up plan has been documented for the patient 10/25/2024 8:03 PM EDT documented as of this encounter Care Teams Dining Car Conductor Relationship Specialty Start Date End Date Sami Be MD PCP - General Family Medicine 06/27/22 documented as of this encounter
[2024-11-11 18:05] LABS: Hematocrit 38.6 % (37.0-47.0); Hemoglobin 11.9 g/dL (12.2-16.2); Immature Granulocytes % 1.3 %; Mean Corpuscular HGB Conc 30.8 g/dL (31.8-35.4); Mean Corpuscular Hemoglobin 30.8 pg (27.0-31.2); Mean Corpuscular Volume 100.0 fl (81-99); Nucleated Red Blood Cells % 0 %; Platelet Count 212 K/mm3 (142-424); Red Blood Count 3.86 M/mm3 (4.20-5.40); Red Cell Distribution Width-SD 47.9 fL; White Blood Count 7.5 K/mm3 (4.8-10.8)
[2024-11-11 19:38] LABS: Uric Acid 5.8 mg/dl (2.5-6.2)
[2024-11-12 10:16] LABS: Chloride 103 mmol/L (98-107)
[2024-11-12 10:17] LABS: Albumin Level 3.4 g/dl (3.5-5.0); Potassium 4.3 mmoL/L (3.5-5.1); Sodium 136 mmol/L (136-145)
[2024-11-12 10:19] LABS: Anion Gap 13.3 mEq/L (5-15); Blood Urea Nitrogen 12 mg/dl (7-17); Carbon Dioxide 24 mmol/L (22.0-30.0); Creatinine,Serum 1.10 mg/dl (0.52-1.04); Estimated Glomerular Filt Rate 49 ml/min (>60); GFR (African American) 59 ML/MIN (>60)
[2024-11-12 10:20] LABS: Alanine Aminotransferase 13 U/L (12-78); Albumin/Globulin Ratio 1.2 (1.1-1.8); Alkaline Phosphatase 94 U/L (38-126); Aspartate Amino Transferase 27 U/L (14-36); Bilirubin,Total 0.3 mg/dl (0.2-1.3); Calcium 8.0 mg/dl (8.4-10.2); Globulin 2.8 g/dL (1.3-3.2); Glucose 76 mg/dl (74-100); Total Protein,Serum 6.2 g/dl (6.3-8.2)
--- OUTSIDE RECORDS SUMMARY | 2024-11-15 13:08 | XMS_ITS | Clinical Summary ---
Author Organization Healthcare Address [address] [place] [address] Care Team Providers Care Cloud Physicist Name Role Phone Sami Be MD Primary Care Provider Eleonora vailable Allergies Active Allergy Reactions Criticality Noted Date Comments Anesthetics, Amide Nausea 03/12/2022 Dexamethasone Other - please docum ent in the comment field Medium 03/12/2022 Levofloxacin Other - please docum ent in the comment field Low 07/09/2021 Lidocaine Unknown - Patient st ates they do not know rxn details Low 09/04/2018 Medications citalopram (CeleXA) 20 MG tablet Take 1 tablet (20 mg) by mouth 1 (one) time each day. 9 Active lisinopril 40 MG tablet Take 1 tablet (40 mg) by mouth 1 (one) time each day. 9 Active furosemide (Lasix) 20 MG tablet Take 1 tablet (20 mg) by mouth 1 (one) time each day. 9 Active ibuprofen 600 MG tablet Take 1 tablet by mouth every 8 hours as needed. 5 Active cholecalciferol (Vitamin D-3) 50 MCG (1999 UT) capsule Take 1 capsule by mouth daily. Active levothyroxine (Synthroid, Levoxyl) 88 MCG tabletIndications: Postoperative hypothyroidism Take 1 tablet by mouth daily. 90 tablet 3 5 10/26/19 26 Active levothyroxine (Synthroid, Levoxyl) 88 MCG tabletIndications: Postoperative hypothyroidism Take 1 tablet (88 mcg) by mouth 1 (one) time each day. 90 tablet 3 4 10/26/19 25 Discontin ued(Reord er) Active Problems Problem Noted Date Diagnosed Date Vitamin D deficiency 10/27/2023 Medication management 10/27/2023 Hypercalcemia 10/27/2023 Postoperative hypothyroidism 10/23/2022 Hypocalcemia 10/23/2022 Hypoparathyroidism after procedure 09/04/2022 S/P total thyroidectomy 09/04/2022 S/P parathyroidectomy 09/03/2022 Class 2 severe obesity with serious comorbidity in adult 06/10/2022 Depression 06/10/2022 Irritability 06/10/2022 Dysphonia 06/10/2022 Leg pain 09/04/2018 Anxiety 05/31/2009 High blood pressure 04/30/1999 Obesity (BMI 35.0-39.9 without comorbidity) 04/21 Resolved Problems Problem Noted Date Diagnosed Date Resolved Date Primary hyperparathyroidism 07/30/2022 09/03/2022 Overview (07/30/2022): Added automatically from request for surgery [id number] 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 07/30/2022 09/03/2022 Overview (07/30/2022): Added automatically from request for surgery [id number] Hyperthyroidism 06/10/2022 09/03/2022 Multinodular goiter 06/10/2022 09/04/19 23 Thyroid nodule greater than or equal to 1.5 cm in diameter incidentally noted on imaging study 06/10/2022 09/03/2022 Encounters Date Type Department Care Team Description 10/25/2024 11:20 AM EDT Office Visit [facility] Endocrinology [address] [place] [address] Melissa Cleveland M, ROAD PRODUCTION GENERAL MANAGER, MUD MIXER HELPER 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) (Primary Dx); Postoperative hypothyroidism; Vitamin D deficiency; Medication management; Hypocalcemia 10/25/2024 Results Follow-Up [facility] Endocrinology [address] [place] [id number] Melissa Cleveland, ROAD PRODUCTION GENERAL MANAGER, MUD MIXER HELPER 10/25/2024 Travel 10/18/2024 Travel from Last 3 Months Immunizations Immunization Administration Dates Next Due Hep A, Adult 05/06/2018 Influenza, high-dose, quadrivalent 01/24,02/01/2021,01/19/2020,2018 Influenza, injectable, quadrivalent 01/30/2017 Influenza, seasonal, injecta ble, preservative free 05/08/2016 Pfizer-BioNTech COVID-19 Vac cine (Vasquez Cap) 12+ years (nayely-sucrose) 08/09/2021 Pfizer-BioNTech COVID-19 Vac cine (Purple Cap) 12+ 12/28/2020,06/14/2020,05/23/2020 Pneumococcal Conjugate PCV 13 01/19/2020 Zoster, live 03/12/2016 Family History Medical History Relation Name Comments Hypertension Father Ajit Lim Kidney disease Father Ajit Lim Thyroid disease Mother Say Lim Anesthesia problems Neg Hx Malig Hyperthermia Neg Hx Relation Name Status Comments Father Ajit Lim Mother Say Lim Social History Tobacco Use Types Packs/Day Years [...] PM EST Sexual Orientation Not on file Last Filed Vital Signs Vital Sign Reading Time Taken Comments Blood Pressure 156/93 10/25/2024 11:08 AM EDT Pulse 76 10/25/2024 11:08 AM EDT Temperature 36.6 C (97.8 F) 10/29/2022 12:54 PM EDT Respiratory Rate 11 08/07/2022 11:10 AM EDT Oxygen Saturation 98% 08/08/2022 8:53 AM EDT Inhaled Oxygen Concentration - - Weight 98.7 kg (217 lb 9.5 oz) 10/25/2024 11:08 AM EDT Height 170.2 cm (5' 7 ) 10/25/2024 11:08 AM EDT Body Mass Index 34.08 10/25/2024 11:08 AM EDT Plan of Treatment Upcoming Encounters Date Type Department Care Team (Late st Contact Info) Description 10/31/2025 11:00 AM EDT [facility] [address] [place] [address] Melissa Cleveland, ROAD PRODUCTION GENERAL MANAGER, MUD MIXER HELPER [address] [place] [address] Health Maintenance Due Date Last Done Comments [facility]-Hepatitis C Screening 1950 [facility]-Medicare Annual Wellness (AWV) 1950 [facility]-Infant/Child/Adol SDOH Screenings 1950 [facility]- SDOH Screenings 02/25/1968 [facility]-Adult SDOH Screenings 02/25/1968 [facility]-DTaP,Tdap,and Td Vaccines (1 - Tdap) 1969 CT Colonography 1995 Colonoscopy 1995 FIT-DNA 1995 FIT 1995 FOBT 1995 Sigmoidoscopy 1995 [facility]-Colorectal Cancer Screening 1995 [facility]-Zoster Vaccines (2 of 3) 05/07/2016 03/12/2016 LQM-EHDVP-15 Vaccine (8 - Pfizer risk 2023- season) 2024 12/27/2023, 01/11/2023, 01/01/2022, Additional history exists [facility]-Bone Density Scan 07/26/2024 07/26/2022 [facility]-Influenza Vaccine (#1) 12/20/202403/08, 01/11/2023, 01/24/2022, Additional history exists [facility]-Breast Cancer Screening 06/25/2025 03/0 10/2023, 06/26/2023, 06/24/2022, Additional history exists [facility]-Depression Screening 10/25/2025 10/25/2024, 06/20 [facility]-Hepatitis A Vaccines Aged Out 05/06/2018 No longer eligible based on patient's age to complete this topic [facility]-Pneumococcal Vaccine: 50+ Years Completed 01/19/2020, 09/13/2015 [facility]-RSV Vaccine: 60+ Years or Completed 03/26/2024 [facility]-Obesity Intervention Completed 025, 10/27/2023, 09/30/2023, Additional history exists HPV Vaccines Aged Out No longer eligi ble based on patient's age to complete this topic [facility]-HIB Vaccines Aged Out No longer e ligible based on patient's age to complete this topic [facility]-IPV Vaccines Aged Out No longer e ligible based on patient's age to complete this topic [facility]-Rotavirus Vaccines Aged Out No lo nger eligible based on patient's age to complete this topic Procedures Procedure Name Priority Date/Time Associated Diagnosis Comments FREE T4, PLASMA Routine 10/25/2024 11:52 AM EDT Postoperative hypothyroidism TSH Routine 10/25/2024 11:52 AM EDT Postoperative hypothyroidism VITAMIN D 25 HYDROXY Routine 10/25/2024 11:52 AM EDT Hypoparathyroidism after procedure ([facility]) Vitamin D deficiency TOTAL CALCIUM, PLASMA Routine 10/25/2024 11:52 AM EDT Hypoparathyroidism after procedure ([facility]) Vitamin D deficiency DEXA BONE DENSITY Routine 07/26/2022 10: 31 AM EDT Hypercalcemia from Last 3 Months or Most Recently Relevant to Health Maintenance Results * Vitamin D 25 Hydroxy (10/25/2024 11:52 AM EDT) Vitamin D 25 Hydroxy 52.4 20.0 - 80.0 ng/mL 10/25/2024 3:31 PM EDT [facility] Blood Venous blood specimen / Unknown Venipuncture / Unknown 10/25/2024 11:52 AM EDT 10/25/2024 11:53 AM EDT Narrative [facility] - 10/25/2024 3:31 PM EDT Testing performed on Myers Seed Cleaner, standardized against NIST SRM 2972. When testing [...] Possible toxicity: >100 ng/mL Melissa Cleveland APRN, MUD MIXER HELPER LAB BLOOD ORDERABLES Final Result Performing Organization Address City/[facility] Co de Phone Number [facility] [address] [place] [address] * Thyroid Stimulating Hormone, Plasma (10/25/2024 11:52 AM EDT) Thyroid Stimulating Hormone, Plasma 2.19 0.40 - 4.20 uIU/mL 10/25/2024 1:59 PM EDT [facility] Blood Venous blood specimen / Unknown Venipuncture / Unknown 10/25/2024 11:52 AM EDT 10/25/2024 11:53 AM EDT Melissa Cleveland APRN, MUD MIXER HELPER LAB BLOOD ORDERABLES Final Result Performing Organization Address City/[facility]/[place] [address] * Free T4, Plasma (10/25/2024 11:52 AM EDT) Free T4, Plasma 1.2 0.8 - 1.7 ng/dL 10/25/2024 1:59 PM EDT [facility] Blood Venous blood specimen / Unknown Venipuncture / Unknown 10/25/2024 11:52 AM EDT 10/25/2024 11:53 AM EDT Melissa Cleveland APRN, MUD MIXER HELPER LAB BLOOD ORDERABLES Final Result Performing Organization Address City/[facility]/ZIP Co de Phone Number [facility] [address] [place] [address] * (ABNORMAL) Total Calcium, Plasma (10/25/2024 11:52 AM EDT) Total Calcium, Plasma 8.5(L) 8.9 - 10.2 mg/dL 10/25/2024 1:59 PM EDT [facility] Blood Venous blood specimen / Unknown Venipuncture / Unknown 10/25/2024 11:52 AM EDT 10/25/2024 11:53 AM EDT us Melissa Cleveland APRN, MUD MIXER HELPER LAB BLOOD ORDERABLES Final Result Performing Organization Address City/[facility] Co de Phone Number [facility] [address] [place] [address] * Dexa Bone Density (07/26/2022 10:31 AM EDT) Anatomical Region Laterality Modality L-spine Radiographic Ayala ging Narrative 08/05/2022 7:47 PM EDT [facility] - Nephrology, Bone & Mineral Metabolism [address] [place] [address] DXA Bone Densitometry Report: [07/26/2022] Subjective BMD test performed using the [employer] DXA System (analysis version: 14.10) manufactured by [employer]. REFERRING PROVIDER: Maine Flores APRN CLINICAL INFORMATION: osteoporosis PATIENT NAME: Nereida Adams PATIENT AGE: 72 y.o. LEGAL SEX: female RADIOGRAPHIC VIEWS: Sites scanned: AP Spine, HIP Right , and HIP Left COMPARISON STUDY: DXA Axial Prior studies are not available for comparison. FINDINGS: Based on WHO criteria (post-menopausal female) the diagnosis is Osteopenia . The lowest T- score is -2.3 in the femoral neck b/l FRAX (10-year probability of fracture) - Major Osteoporotic: 13.2 %; Hip: 3.2 % The presence of arthritic or degenerative joint changes in the spine could artefactually increase measured BMD. TREATMENT RECOMMENDATIONS: Measured bone density crosses threshold for treatment based upon FRAX criteria Specific anti-osteoporotic therapy remains indicated given high risk of future fracture Work up for secondary osteoporosis and metabolic bone disease could be considered based on clinical indications. Treatment decisions should be based on clinical indications. Suggest general measures to optimize calcium and vitamin D status, fall prevention measures and reduce fracture risk. Consider repeating this study in one year or as clinically indicated to assess bone density change or response to treatment. Maine Banks APRN IMG DXA PROCEDURES Final Res ult from Last 3 Months or Most Recently Relevant to Health Maintenance Insurance Care Teams Cloud Physicist Relationship Specialty Start Date End Date Sami Be MD PCP - General Family Medicine 06/27/22
--- OUTSIDE RECORDS SUMMARY | 2024-11-15 13:08 | XMS_ITS | Encounter Summary ---
Author Organization Healthcare Address [address] [place] [address] Care Team Providers Care Managed Services Sales Consultant Name Role Phone Sami Be MD Primary Care Provider Eleonora vailable Encounter Details Date Type Department Care Team (Latest Contact Info) Description 10/25/2024 Travel Social History Tobacco Use Types Packs/Day Years [...] on file documented as of this encounter Functional Status * Over the [...] difficult at all 10/25/2024 11:13 AM EDT Morning, Mally Avila documented as of this encounter Plan of Treatment Upcoming Encounters Date Type Department Care Team (Late st Contact Info) Description 10/31/2025 11:00 AM EDT Office Visit [facility] Endocrinology [address] [place] [address] Melissa Cleveland, SEISMIC SURVEY ASSISTANT, WIND TURBINE PERFORMANCE ENGINEER [address] [facility] [address] [place] [address] documented as of this encounter Visit Diagnoses Not on filedocumented in this encounter Additional Health Concerns Assessment Noted Time A fall risk assessment has been complete d for the patient 10/25/2024 11:14 AM EDT A Body Mass Index follow-up plan has been documented for the patient 10/25/2024 8:03 PM EDT documented as of this encounter Care Teams Managed Services Sales Consultant Relationship Specialty Start Date End Date Sami Be MD PCP - General Family Medicine 06/27/22 documented as of this encounter
--- OUTSIDE RECORDS SUMMARY | 2024-11-15 13:08 | XMS_ITS | Referral Summary ---
Author Organization [employer] ([place], [place], [place], [place]) Address [address] [place] [address] Care Team Providers Care Cheese Processor Name Role Phone Emmett Govea MD Primary Care Provider [phone] Social History Tobacco Use Types Packs/Day Years Used Date Smoking Tobacco: Never Assessed Food Insecurity Answer Date Recorded Food run out past 12 months Not on file 04/21 Food did not last past 12 months Not on file 05/09/2023 Employment Answer Date Recorded Help finding and keeping a job Not on file 0 05/09/2023 Family and Community Support Answer Franc e Recorded Help with Day to Day Activities Not on file 05/09/2023 Feeling Lonely or Isolated Not on file 05/09 Educational Attainment Answer Date Mata rded Speak language other than Kinyarwanda at home Not on file 05/09/2023 Want help with school or training Not on file 05/09/2023 Substance Use Answer Date Recorded Used prescription meds for non-medical reasons N ot on file 05/09/2023 Used illegal drugs past 12 months Not on file 05/09/2023 Comments Unknown Sex and Gender Information Value Date Recorded Sex Assigned at Female 10/16/2021 5:18 PM CDT Legal Sex Female 5:18 PM CDT Gender Identity Female 10/16/2021 5:18 PM CDT Sexual Orientation Not on file Plan of Treatment Not on file Procedures Procedure Name Priority Date/Time Associated Diagnosis Comments MM DIGITAL MAMMO SCREEN WITH MARTI BILATERAL Routine 06/26/2023 2:08 PM EST Visit for screening mammogram from Last 3 Months or Most Recently Relevant to Health Maintenance Results * MM digital mammo screen with marti bilateral (06/26/2023 2:08 PM EST) Anatomical Region Laterality Modality Breast Bilateral Mammography 06/26/2023 2:13 PM EST Impressions 06/26/2023 2:17 PM EST FINAL IMPRESSION: Stable mammogram. No findings suspicious for malignancy. Bi-RADS: ACR BI-RADS 1: Negative. RECOMMENDATIONS: Annual screening mammography. A letter including results and recommendations was sent to the patient. Density notification was included for patients with pattern 3 or 4 breast tissue. Patient information was entered into a reminder system with a target due date for the next mammogram. At our facility, a [place] marker is positioned over a visible skin lesion and a linear marker is used to indicate a scar. A triangular marker is placed on a self reported palpable finding. Note: Mammography does not detect approximately 10-15% of breast cancers. An annual clinical breast exam by the patient's breast care physician and regular monthly self breast exams by the patient are integral parts of breast cancer screening, in addition to annual mammography. A normal mammogram does not completely exclude the presence of breast cancer, especially if there is an abnormal finding on physical exam. When clinically indicated, a biopsy should not be deferred because of a normal mammogram report. Narrative 06/26/2023 2:17 PM EST PROCEDURE: Digital screening mammogram with Digital Breast Tomosynthesis (DBT). REASON FOR EXAM: Routine screening. FAMILY HISTORY: No family history of breast cancer. COMPARISON STUDY: 2022 through 2015 from [facility] FINDINGS: Craniocaudal and mediolateral oblique images of both breasts were obtained in 2D and DBT modes. Synthesized views were reconstructed from DBT data. The breast tissue is almost entirely fatty. There is no evidence of dominant mass, architectural distortion, or suspicious calcifications. The mammogram was interpreted with the benefit of computer aided detection (CAD). us Provider Not In The System Cecy ROGERS MAMMOGRAPH Y ORDERABLES Final Result from Last 3 Months or Most Recently Relevant to Health Maintenance Insurance [facility] MEDICARE ADVANTAGE Care Teams Cheese Processor Relationship Specialty Start Date End Date Emmett Govea MD [address] [place] [address] [place] [address] PCP - General Adolescent Medicine 06/24/22
--- OUTSIDE RECORDS SUMMARY | 2024-11-15 13:08 | XMS_ITS | Clinical Summary ---
Author Organization [employer] ([place], [place], [place], [place]) Address [address] [place] [address] Care Team Providers Care Social Science Manager Name Role Phone Emmett Govea MD Primary Care Provider [phone] Social History Tobacco Use Types Packs/Day Years [...] Date Mata rded Speak language other than Polish at home Not on file 05/09/2023 Want [...] Orientation Not on file Plan of Treatment Health Maintenance Due Date Last Done Comments Medicare Initial AWV G0438 CT Colonography 1950 Colonoscopy 1950 Colorectal Cancer Screening 1950 DXA SCAN 1950 FOBT/FIT 1950 Fit-DNA (Cologuard) 1950 Sigmoidoscopy 1950 Depression Screening (12+) 1962 Tobacco Cessation Counseling and Screening (12+) 1962 Hepatitis C Screening 02/25/1968 DTAP/TDAP/TD VACCINES (1 - Tdap) 1969 Shingles Vaccine (Zoster) (2 of 2) 05/07/20162015 Pneumococcal 50+ years (2 of 2 - PPSV23) 01/18/2021 01/19/2020 COVID-19 VACCINE (2023-2 5 season) 2023 01/01/2022, 08/09/2021, 12/28/2020, Additional history exists Falls Risk Screening 04/21/2024 Influenza Vaccine (#1) 2024 2, 02/01/2021, 02/01/2021, Additional history exists Respiratory Syncytial Virus (RSV) Adult or (1 - 1-dose 75+ series) 2025 Breast Cancer Screening 06/25/2025 06/26/19 24, 06/24/2022, 06/22/2021, Additional history exists Procedures Procedure Name Priority Date/Time Associated Diagnosis [...] the next mammogram. At our facility, a [place] marker is positioned over a visible skin [...] cancer. COMPARISON STUDY: 2022 through 2015 from [facility] FINDINGS: Craniocaudal and mediolateral oblique images of both breasts were obtained in 2D and DBT modes. Synthesized views were reconstructed from DBT data. The breast tissue is almost entirely fatty. There is no evidence of dominant mass, architectural distortion, or suspicious calcifications. The mammogram was interpreted with the benefit of computer aided detection (CAD). us Provider Not In The System Cecy OJEDA IMG MAMMOGRAPH Y ORDERABLES Final Result from Last 3 Months or Most Recently Relevant to Health Maintenance Insurance [facility] MEDICARE ADVANTAGE Care Teams Social Science Manager Relationship Specialty Start Date End Date Emmett Govea MD [address] [place] [address] [place] [address] PCP - General Adolescent Medicine 06/24/22
--- OUTSIDE RECORDS SUMMARY | 2024-11-15 13:08 | XMS_ITS | Encounter Summary ---
Author Organization Healthcare Address [address] [place] [address] Care Team Providers Care Respite Provider Name Role Phone Sami Be MD Primary Care Provider Eleonora vailable Encounter Details Date Type Department Care Team (Latest Contact Info) Description 10/18/2024 Travel Social History Tobacco Use Types Packs/Day Years Used Date Smoking Tobacco: Never Smokeless Tobacco: Never Comments:none Alcohol Use Standard Drinks/Week Comments Never 0 (1 standard drink = 0.6 oz pur e alcohol) PHQ-2 Answer Date Recorded Patient Health Questionnaire-2 Score 0 10/29/2022 PHQ-2A Answer Date Recorded Depression Risk 0 07/16/2022 Comments No Sex and Gender Information Value Date Recorded Sex Assigned at Female 06/03/2022 12:31 PM EST Legal Sex Female 8:57 PM EDT Gender Identity Female 06/03/2022 12:31 PM EST Sexual Orientation Not on file documented as of this encounter Plan of Treatment Upcoming Encounters Date Type Department Care Team (Late st Contact Info) Description 10/31/2025 11:00 AM EDT Office Visit [facility] [address] [place] [address] Melissa Cleveland, THREAD MILLING MACHINE SET UP OPERATOR, AUTOMOBILE INSURANCE CLAIM EXAMINER [address] [place] [address] documented as of this encounter Visit Diagnoses Not on filedocumented in this encounter Additional Health Concerns Assessment Noted Time A fall risk assessment has been complete d for the patient 06/11/2023 2:36 PM EST A Body Mass Index follow-up plan has been documented for the patient 10/27/2023 11:12 AM EDT documented as of this encounter Care Teams Respite Provider Relationship Specialty Start Date End Date Sami Be MD PCP - General Family Medicine 06/27/22 documented as of this encounter
--- OUTSIDE RECORDS SUMMARY | 2024-11-15 13:08 | XMS_ITS | Patient Health Record ---
Author Organization [facility] Address [address] [place] [address] Care Team Providers Care Forest Supervisor Name Role Phone Emmett Govea Primary Care Provider [phone] AuroraJosselyn Unavailable [phone] Migration, Provider Unavailable Unavailable Allergies Allergen (clinical drug ingredient) Drug/Non Drug Allergy documented on EMR Reaction Allergy Type Onset Date Status LEVAQUIN (uncoded) facial twitching Allergy Active Reason For Referral No Information Medications Medication SIG (Take, Route, Frequency, Duration) Notes Start Date End Date Status Citalopram Hydrobromide 20 MG 1 tab(s) orally once a day; Duration: 90 days Active Breo Ellipta 100 MCG-25 MCG/INH 1 PUFF(S) INHALED ONCE A DAY; Duration: 30 DAY(S) *Please review and pick correct strength-formulati on from Medispan options. If intended option is not shown, discontinue and re-order from Quick Search* 09/24/2021 Active Gabapentin 300 MG 1 cap(s) orally [...] discontinue and re-order from Quick Search* Active Atorvastatin Calcium 20 MG 1 tab(s) orally once a day; Duration: 30 day(s) 10/13/2020 Active Cetirizine HCl 10 MG 1 tab(s) orally onc e a day prn 03/25/2019 Active Furosemide 20 MG 1 tab(s) orally once a day; Duration: 90 days Active Lisinopril 40 MG 1 tab(s) orally once a day; Duration: 90 days Active Fluticasone Propionate 50 MCG/ACT 1 spray(s) intranasally once a day; Duration: 30 day(s) Active Immunizations Vaccine Route Administration Date Status Comme nts Prevnar PCV-13 (Pneumococcal conjugate 13) IM Intramuscular 01/19/2020 Administered Pneumovax 23 IM Intramuscular 09/13/2015 Administered Influenza (Fluzone)--Medicare only IM Intramuscular 01/30/2017 Administered Hep A Adult 2 Dose Unknown 05/06/2018 Administered Fluzone High Dose IM Intramuscular 05/04/2018 Administered Fluzone High Dose IM Intramuscular 01/19/2020 Administered Fluzone High Dose IM Intramuscular 02/01/2021 Administered Fluvirin--Influenza vaccine 3+ year IM Intramuscular 12/30/2011 Administered Fluvirin--Influenza vaccine 3+ year Unknown 03/24/2013 Administered Fluvirin--Influenza vaccine 3+ year IM Intramuscular 05/09/2016 Administered Covid Pfizer Unknown 05/23/2020 Administered Covid Pfizer Unknown 06/14/2020 Administered Problems Problem Type SNOMED Code ICD Code Onset Dates Problem Status W/U Status Risk Notes Problem Pure hypercholesterolemia (817553002) Pure hypercholesterolemia (E78.0) Active confirmed Problem Chronic pain (82900555) Other chronic pain (G89.29) Active confirmed Problem Chronic pain syndrom e (543729547) Chronic pain syndrome (G89.4) Active confirmed Problem Essential hypertension (02423234) Essential (primary) hypertension (I10) Active confirmed Problem Allergic rhinitis caused by pollen (disorder) (37086118) Allergic rhinitis due to pollen (J30.1) Active confirmed Problem Arthralgia of the ankle and/or foot (726338559) Pain in right ankle and joints of right foot (M25.571) Active confirmed Problem Sciatica (28357825) Lumbago with sciatica, left side (M54.42) Active confirmed Problem Mixed anxiety and depressive disorder (280678814) Depression with anxiety (F41.8) Active confirmed Problem Sialadenitis (37562208) Sialadenitis (K11.20) Active confirmed Problem Arthritis (2787080) Arthritis (M19.90) Active c onfirmed Problem Hyperglycemia (23661698) Hyperglycemia (R73.9) Active confirmed Problem Morbid obesity (156892041) Morbid obesity due to excess calories (E66.01) Active confirmed Problem Peripheral edema (98180841) Peripheral edema (R60.9) Active confirmed Problem Diverticulitis of sigmoid colon (145885073) Diverticulitis of sigmoid colon (K57.32) Active confirmed Problem Diverticular disease of colon (513704925) Diverticulosis of large intestine without hemorrhage (K57.30) Active confirmed Problem Lipoma of left upper limb (5725896042390965) Lipoma of left upper extremity (D17.22) Active confirmed Problem Chronic kidney disease stage 2 (651898909) Stage 2 chronic kidney disease (N18.2) Active confirmed Problem Mixed incontinence (537097905) Mixed urge and stress incontinence (N39.46) Active confirmed Encounters Encounter Location Date Provider Diagnosis [facility] [address] [facility] [address] [place] [address] 07/24/2024 Provider Migration Other chronic pain G89.29 Assessments Encounter Date Diagnosis (ICD Code) Assessment Notes Treatment Notes Treatment Clinical Notes Section Notes 07/24/2024 Other chronic pain (ICD-10 - G89.29) Plan Of Treatment Pending Test Test Name Order Date Urinalysis 10/02/2020 X ray : Knee, Right 05/23/2014 Physical Therapy 08/27/2018 Physical Therapy 08/31/2018 H-CBC with AUTO DIFF 03/06/2016 H-CMP 03/06/2016 H-LIPID PANEL 03/06/2016 C-CBC 10/25/2013 C-CMP 10/25/2013 C-LIPID PANEL 10/25/2013 C-TSH 10/25/2013 C-VITAMIN B12 10/25/2013 C-HGBA1C 10/25/2013 C-VITAMIN D, 25-HYDROXY 10/25/2013 Rapid Flu, A 04/04/2014 Rapid Flu, B 04/04/2014 M-Comprehensive Metabolic Panel 07/26/19 20 M-Hemoglobin A1C 07/26/2019 M-Lipid Panel 07/26/2019 Insurance Providers Payer Name Payer Address Payer Phone Subscriber Number Group Number Insured Name Patient Relationship to Insured Coverage Start Date Coverage End Date [employer] MED[employer] [address] [address] [place] [address] [phone] [id number] BryanNereida Self - patient is the insured Medications Administered Medication Instructions Date of Administration Dosage Notes Ceftriaxone 500 08/15/2016 500 mg Ceftriaxone 500 08/16/2016 500 mg Cyanocobalamin/B-12 Pt's Own Medication 09/10/2012 Cyanocobalamin/B-12 Pt's Own Medication 09/18/2012 Cyanocobalamin/B-12 Pt's Own Medication 09/25/2012 Cyanocobalamin/B-12 Pt's Own Medication 10/01/2012 Cyanocobalamin/B-12 Pt's Own Medication 10/09/2012 Cyanocobalamin/B-12 Pt's Own Medication 10/20/2012 Cyanocobalamin/B-12 Pt's Own Medication 11/10/2012 Cyanocobalamin/B-12 Pt's Own Medication 11/19/2012 Cyanocobalamin/B-12 Pt's Own Medication 12/10/2012 Cyanocobalamin/B-12 Pt's Own Medication 01/27/2013 Kenalog 40mg 02/11/2017 40 mg Triamcinolone Acetonide 40mg Injection 05/19/2018 1 mL Triamcinolone Acetonide 40mg Injection 03/25/2019 1 mL Kenalog 03/31/2014 1 Kenalog 03/05/2016 1 mL Medical (General) History Medical History History ICD Code diverticulitis hypertension hyperlipidemia right ankle fracture - normal DEXA scan January 2015 Obesity Depression with anxiety normal mammogram 2019 Colonoscopy with resection 2 018, repeat 2020 showed clear - GI recommends 7 year f/u Surgical History Surgery Date(Month/Year) hysterectomy 1996 appendectomy 1982 tonsillectomy 1964 fatty tumor removed from left 2015 Colonoscopy 2010 Colon Resection for diverticulitis 2017 Hospitalization History Reason Date(Month/Year) diverticulitis 10/2011 high blood pressure diverticulitis 2014
--- OUTSIDE RECORDS SUMMARY | 2024-11-15 13:08 | XMS_ITS | Encounter Summary ---
Author Organization Healthcare Address [address] [place] [address] Care Team Providers Care Spring Former Hand Name Role Phone Sami Be MD Primary Care Provider Eleonora vailable Encounter Details Date Type Department Care Team (Late st Contact Info) Description 10/25/2024 Results Follow-Up Jennifer Gilbert [facility] Endocrinology [address] [place] [address] Melissa Cleveland APRN, SLICE PLUG CUTTER OPERATOR [address] [facility] [address] [place] [address] Social History Tobacco Use Types Packs/Day Years [...] Not at all 10/25/2024 11:13 AM EDT Morning, Margi Avila Feeling down, depressed, or hopeless Not at [...] 10/31/2025 11:00 AM EDT Office Visit Jennifer Skinnertable [facility] Endocrinology [address] [place] [address] Melissa Cleveland, GLASSWARE ENGRAVER, SLICE PLUG CUTTER OPERATOR [address] [facility] [address] [place] [address] documented as of this encounter Visit Diagnoses Not on filedocumented in this encounter Additional Health Concerns Assessment Noted Time A fall risk assessment has been complete d for the patient 10/25/2024 11:14 AM EDT A Body Mass Index follow-up plan has been documented for the patient 10/25/2024 8:03 PM EDT documented as of this encounter Care Teams Spring Former Hand Relationship Specialty Start Date End Date Sami Be MD PCP - General Family Medicine 06/27/22 documented as of this encounter
== END 2024-11-11 23:59 | disposition home or self-care (01) ==
LOC: LAB.DROPOF 11-15 12:59
PROVIDERS: PCP Nurse Practitioner Family; Visit Provider Nurse Practitioner Family
DX: M79.672 Pain in left foot (principal); I10 Essential (primary) hypertension
CPT/HCPCS: 80053; 84550; 85025